=== PATIENT | female | born 1960 | race Caucasian/White ===

== ENCOUNTER 2016-11-17 09:37 | Emergency (ER) | payer OTHER ==
--- NOTE | 2016-11-17 11:36 | UC ---
Ear Complaint HPI - HPI Summary HPI Summary: 7 days ago pt had 2-3 days of vomiting and diarrhea with lots of chills. Was feeling better by 4 days ago, then yesterday developed nasal congestion, cough, R ear stuffiness, and difficulty hearing. Reports "panic attack because I couldn 't hear last night." Pt denies hx of breathing problems or COPD. No chills, fever, or trouble breathing in last couple days. - History of Current Complaint Chief Complaint: UCEar Stated Complaint: FEVER Time Seen by Provider: 11/17/16 11:19 Hx Obtained From: Patient ?: No Onset/Duration: Gradual Onset, Lasting Days Severity Initially: Mild Severity Currently: Mild Associated Signs/Symptoms: Positive: Hearing Loss, URI Symptoms - Allergies/Home Medications Allergies/Adverse Reactions: Allergies Allergy/AdvReac Type Severity Reaction Status Date / Time No Known Allergies Allergy Verified 12/21/15 10:37 PMH/Surg Hx/FS Hx/Imm Hx Endocrine History Of: Denies: Diabetes, Thyroid Disease Cardiovascular History Of: Reports: Cardiac Disorders - HEART ATTACK, Hypertension - TREATED Denies: Pacemaker/ICD Respiratory History Of: Reports: Asthma - NO INHALER NEEDED, Bronchitis - HX OF , NONE FOR 2 YEARS Denies: COPD GI/ History Of: Denies: Ulcer, Renal Disease Neurological History Of: Reports: Seizures - LAST AT AGE 14 Other History Of: Negative For: Anticoagulant Therapy - Surgical History Surgical History: Yes Surgery Procedure, Year, and Place: TONSILLECTOMY AGE 3,. 1981 [facility] 1986 [place], [place]. 11/13/14 LEFT ELBOW SURG[place], [facility] [place]. 07/2015 RIGHT ELBOW SURGERY AND CARPAL TUNNEL RELEASE, [facility] [place] - Family History Known Family History: Positive: Cardiac Disease - Brother (52) and father had an ID. - Social History Alcohol Use: None Substance Use Type: None Smoking Status (MU): Heavy Every Day Tobacco Smoker Type: Cigarettes Amount Used/How Often: LESS THAN 1 PPD Length of Time of Smoking/Using Tobacco: 44 YEARS Have You Smoked in the Last Year: Yes When Did the Patient Quit Smoking/Using Tobacco: 04/04/14 - Immunization History Most Recent Influenza Vaccination: n/a Most Recent Tetanus Shot: unk Most Recent Pneumonia Vaccination: n/a Review of Systems Constitutional: Chills - resolved Skin: Negative Eyes: Negative ENT: Ear Ache, Nasal Discharge Respiratory: Cough Cardiovascular: Negative Gastrointestinal: Vomiting - resolved, Diarrhea - resolved Genitourinary: Negative Motor: Negative Neurovascular: Negative Musculoskeletal: Negative Neurological: Negative Psychological: Negative All Other Systems Reviewed And Are Negative: Yes Physical Exam Triage Information Reviewed: Yes Appearance: Well-Appearing, No Pain Distress, Well-Nourished Vital Signs: Initial Vital Signs Temp 97.1 F 11/17/16 11:14 Pulse 71 11/17/16 11:14 Resp 18 11/17/16 11:14 Pulse Ox 97 11/17/16 11:14 Vital Signs Reviewed: Yes Eye Exam: Normal Eyes: Positive: Conjunctiva Clear ENT: Positive: Hearing grossly normal, Pharynx normal, Nasal congestion, Other: - R cerumen impaction. Negative: Nasal drainage, Tonsillar swelling - s/p tonsillectomy Dental Exam: Normal Neck exam: Normal Neck: Positive: Supple, Nontender, No Lymphadenopathy Respiratory Exam: Normal Respiratory: Positive: Chest non-tender, Lungs clear, Normal breath sounds, No respiratory distress, No accessory muscle use Cardiovascular Exam: Normal Cardiovascular: Positive: RRR, No Murmur Musculoskeletal Exam: Normal Neurological Exam: Normal Psychological Exam: Normal Skin Exam: Normal Ear Complaint Course/Dx - Differential Dx/Diagnosis Provider Diagnoses: R cerumen impaction. URI, likely viral. Acute gastroenteritis, resolved Discharge - Discharge Plan Condition: Stable Disposition: HOME Patient Education Materials: Cerumen Impaction (ED), Upper Respiratory Infection (ED) Referrals: Indra Blair MD [Primary Care Provider] - Additional Instructions: Call or return if you develop increasing fever, shortness of breath, chest pain , bloody sputum, or otherwise worsen. If you have not improved at all after several days, contact your primary care physician or return here.
[2016-11-17 11:46] VITALS: BP 138/70
== END 2016-11-17 11:59 | disposition home or self-care (01) ==
LOC: UCEAST 09:37
DX: J06.9 Acute upper respiratory infection, unspecified (principal); H61.21 Impacted cerumen, right ear; Z87.891 Personal history of nicotine dependence
CPT/HCPCS: 99212; G0463

== ENCOUNTER 2017-11-04 11:48 | Emergency (ER) | payer OTHER ==
[2017-11-04 12:23] VITALS: BP 139/71
== END 2017-11-04 13:51 | disposition left against medical advice (07) ==
LOC: UCEAST 11:48
DX: S89.90XA Unspecified injury of unspecified lower leg, initial encounter (principal); X58.XXXA Exposure to other specified factors, initial encounter; Y93.9 Activity, unspecified; Y92.9 Unspecified place or not applicable; Z53.21 Procedure and treatment not carried out due to patient leaving prior to being seen by health care provider

== ENCOUNTER 2018-02-21 00:29 | Observation (INO) | payer OTHER ==
--- OUTSIDE RECORDS SUMMARY | 2018-02-21 00:43 | XMS REPORT ---
:1960 External Reference #:[id number] Author Organization [facility] Address [address] [place] [address] Phone [phone] Care Team Providers Name Role Phone HCP given Primary Care Physician Unavailable Payers Type Date Identification Numbers Payment Provider Subscriber Health Maintenance Policy Number: [id number] Vidal[employer] ([employer] Jelly Gre[employer] Organization (HMO) MGD) PayID: [id number] [id number] [place] [id number] Problems Date Description Provider Status Onset: 11/29/2017 Coronary atherosclerosis Sharon Carranza PA Active Onset: 11/29/2017 Tobacco user Sharon Carranza PA Active Onset: 11/29/2017 Chronic pain syndrome Sharon Carranza PA Active Onset: 11/29/2017 Essential hypertension Sharon Carranza PA Active Family History Date Family Member(s) Problem(s) Comments Father Alcoholism Father due to HI () - age 42 Father HI Father Heart Problems Mother due to Appendicitis () Mother Obesity Children 1 First Brother due to HI () - age 54 First Sister due to Heart Problems () - age 26 First Sister due to Kidney Disease () - age 26 Second Sister due to Aneurysm Brain () - clot, age 59 Maternal Grandmother Cancer ?type Paternal Aunts Diabetes, Nos Social History Type Date Description Comments Education High School Completed Marital Status Cigarette Use 11/29/2017 Heavy tobacco smoker (more than 10 1 ppd cigarettes/day) ETOH Use Occassional Alcohol Recreational Drug Use Denies Drug Use Smoking Heavy tobacco smoker (more than 10 cigarettes/day) Daily Caffeine Consumes on average 2 cups of coffee per day Exercise Type/Frequency Walks daily Sun Exposure Uses sunscreen Seat Belt/Car Seat Seat Belt Use - Yes Guns in Home No Smoke Alarms Yes smoke alarm Currently Active 11/29/2017 Patient is currently not sexually active Allergies, Adverse Reactions, Alerts Date Description Reaction Status Severity Comments 11/29/2017 NKDA active Medications Medication Date Status Form Strength Qnty SIG Indications Ordering Provider Benzonatate 01/23/ Active Capsules 200mg 60caps 1 cap by R05 Ellen, 2017 mouth Ashwin, three M.D. times a day as needed cough Ventolin HFA 01/23/ Active Aerosol 108(90Base 18gm 2 puffs F17.210 Silcoff2017 ) mcg/Act q4-6 hours Ashwin, as needed M.D. Nicotine 01/23/ Active Patches 21mg/24HR 42unit 1 patch F17.210 Silcoff 2017 24HR s topically Ashwin, daily M.D. Senokot 01/22/ Active Tablets 8.6mg as Unknown 2017 directed, as needed Knee 11/29/ Active Misc 1units use as M25.561 Silcoff, Brace/Flexible 2018 directed Ashwin, Stays/Medium M.D. Aspirin Adult 11/28/ Active Tablets DR 81mg 1 by mouth Unknown Low Dose 2017 every day Nitroglycerin 11/28/ Active Tablets 0.4mg as needed, Unknown 2017 Sub as directed Oxycodone HCL 11/28/ Active Tablets 10mg 81tabs Take 1 Unknown 2018 Tablet By Mouth Every 8 Hours as Directed -- Maximum Daily Dose Lisinopril 11/02/ Active Tablets 5mg 30tabs 1 tablet Mauser, 2017 by mouth Sanket every day Metoprolol 11/02/ Active Tablets ER 25mg 30tabs take 1 Mauser, Succinate ER 2018 24HR tablet by erick Coles MD every day Clopidogrel 11/02/ Active Tablets 75mg 30tabs take 1 Mauser, Bisulfate 2018 tablet by erick Coles MD every day Amlodipine 11/02/ Active Tablets 10mg 30tabs take 1 Mauser, Besylate 2018 tablet by erick Coles MD every day Atorvastatin 10/31/ Active Tablets 80mg 15tabs take 1/2 Mauser, Calcium 2018 tablet by erick Coles MD every day Vital Signs Date Vital Result Comment 01/23/2018 BP Systolic 126 mmHg BP Diastolic 70 mmHg Heart Rate 82 /min O2 % BldC Oximetry 97 % Body Temperature 97.6 F Weight 191.00 lb 11/29/2017 BP Systolic 138 mmHg BP Diastolic 76 mmHg Height 64 inches 5'4" Weight 190.00 lb BMI (Body Mass Index) 32.6 kg/m2 Results Description No Information Procedures Date CPT Code Description Status 01/23/2018 71723 Spirometry Completed Encounters Type Date Location Provider CPT E/M Dx Office Visit 01/23/2018 2:30p [place] [address] R05 F17.210 M25.561 M65.331 I25.10 Office Visit 11/29/2017 3:20p [place] [address] M25.561 I25.10 I10 G89.4 F17.210 Z79.891 Plan of Care 01/23/2018 - Sharon Carranza PAR05 CoughNew Medication:Benzonatate 200 mgComments :Rx for tessalon prn cough. Pt needs to quit smoking.F17.210 Nicotine dependence , cigarettes, uncomplicatedNew Medication:Ventolin HFA 108(90 Base) mcg/ ActNicotine 21 mg/24HRComments:Smoking cessation counseling <10 minutes done today. Spirometry showed mild restriction--discussed.M25.561 Pain in right kneeNew Xrays:MRI Knee Right W/O ContrastComments:Continue R knee brace. Will MRI (Xrays done prior were normal). Consider ortho referral based on MRIresults.M65.331 Trigger finger, right middle fingerComments:Recommended pt start using her hand/wrist braces at night and monitor sx. Consider referring back toortho if not improving.I25.10 Athscl heart disease of [place] coronary artery w/o ang pctrsComments:Sees cardiology, has upcoming stress test scheduled.
--- OUTSIDE RECORDS SUMMARY | 2018-02-21 00:43 | XMS REPORT ---
:1960 External Reference #:[id number] Author Organization [place] [employer] [facility] Address [address] [address] Phone [phone] Care Team Providers Name Role Phone Patient's Choice Care Team Information Veterinary Virus Serum Inspector Unavailable Indra Blair MD Primary Care Physician Unavailable Payers Type Date Identification Numbers Payment Provider Subscriber Commercial Policy Number: [id number] [employer] Zach Domingo PayID: [id number] [address] [address] [place] [address] Workers Compensation Effective: Policy Number: State Insurance Zach Prideol 2016 [id number] Fund Onset: 2013 Group Number: [id number] [address] [id number] Group Name: [id number] [place] [address] [id number] Expires: Policy Number: State Insurance Candneto Chayo 2016 [id number] Fund Onset: 2013 Group Number: [id number] [address] [id number] Group Name: [id number] [place] [address] [place]: [email or web address] Workers [place] Expires: 2013 Policy Number: Varun-ALL Elizabeth Zach Domingo [id number] PayID: [id number] [address] [place] [address] Problems Date Description Provider Status Onset: 06/09/2014 Lateral epicondylitis Jada Chaney M.D. Active Onset: 06/01/2015 Disorder of bursa of shoulder Jesus Martinez M.D. Active region Onset: 04/07/2016 Carpal tunnel syndrome of left Mariela Montelongo MD Active wrist Onset: 12/29/2016 Lesion of ulnar nerve Mariela Montelongo MD Active Onset: 01/05/2017 Carpal tunnel syndrome of right Mariela Montelongo MD Active wrist Family History Date Family Member(s) Problem(s) Comments General Heart Disease, Cancer, Diabetes General KS Father due to KS () Mother due to appendicitis () Siblings 7 1 brother of KS sister also passed from enlarged heart Social History Type Date Description Comments Lives With Alone Occupation Disabled out on workmans comp ETOH Use Occasionally consumes alcohol Recreational Drug Use Denies Drug Use Smoking Light tobacco smoker (10 or fewer cigarettes/day) Daily Caffeine Consumes on average 2 cups of regular coffee per day Exercise Type/Frequency Does not exercise Allergies, Adverse Reactions, Alerts Date Description Reaction Status Severity Comments 10/24/2013 NKDA active Medications Medication Date Status Form Strength Qnty SIG Indications Ordering Provider Nitro-Dur 02/04/ Active Patches 0.1mg/HR 30uni 1 patch Sanket 2017 24HR ts every day Bridger Rapp, on in the M.D. morning, off at night Metoprolol 01/17/ Active Tablets ER 25mg 90tab 1 by Sanket Succinate ER 2016 24HR s mouth FHeladio Mausechau, every day M.D. Amlodipine / Active Tablets 10mg 90tab 1 by Sanket Besylate s mouth FHeladio Mausechau, every day M.D. Oxycodone HCL / Active Tablets 10mg 1 by Unknown 0000 mouth every 8 hours as directed Aspirin / Active Tablets DR 81mg 1 by Unknown 0000 mouth every day Clopidogrel / Active Tablets 75mg 90tab 1 by Sanket Bisulfate 0000 s mouth FHeladio Mausechau, every day M.D. Lisinopril / Active Tablets 5mg 90tab 1 by Sanket 0000 s mouth FHeladio Mausechau, every day M.D. Atorvastatin / Active Tablets 80mg 45tab 1/2 by Sanket Calcium 0000 s mouth FHeladio Mausechau, every day M.D. Nitrostat / Active Tablets 0.4mg one sl Unknown 0000 Sub q5min up to 3 doses as needed Senokot / Active Tablets 8.6mg once a Unknown 0000 day as needed Benzonatate / Active Capsules 200mg one by Unknown 0000 mouth three times daily as needed for cough Ventolin HFA / Active Aerosol 108(90Bas 2 puffs Unknown 0000 e) by mouth mcg/Act four times a day as needed Amoxicillin/Clavu 09/03/ Hx Tablets 875-125mg 1 by Unknown lanate Potassium 2017 - mouth 11/08/ twice a 2018 day Ipratropium 09/03/ Hx Solution 0.06% 2 sprays Unknown [place] 2017 - in each 01/06/ nostril 3 2018 times daily as needed (pt has not started) [place] 01/25/ Hx Tablets 5-325mg 45tab 1-2 by Jacob Sierra 2015 - s mouth bid MD Jayda 04/06/ as 2016 needed pain [place] 12/30/ Hx Tablets 5-325mg 45tab 1-2 by Jacob Bañuelos - s mouth bid MD Jayda 04/06/ as needed 2015 pain [place] 10/30/ Hx Tablets 5-325mg 16tab one to Sanjana 2015 Che[place] s two tabs Mike, 12/10/ by mouth M.D. 2015 bid [place] 10/08/ Hx Tablets 5-325mg 60tab one to Jl 2014 Cheko s two tabs Kirit, 10/15/ by mouth M.DHeladio 2014 twice a day as needed for pain Hydrocodone-Aceta 06/01/ Hx Tablets 5-325mg 45tab 1-2 tabs M75.50 Zaneb minophen 2014 - s PO Q6 MD Jayda 01/24/ hours prn 2016 pain Medrol 02/03/ Hx Tablets 4mg 1tabs medrol Jada 2014 [place] dosepajimmie Vargas 04/20/ as Yolanda fraser 2014 directed [place] 12/30/ Hx Tablets 5-325mg 60tab 1-2 by Jose 2014 - s mouth Hilario, 06/12/ every 8 M.DHeladio 2015 hour as needed pain No Active 01/20/ Hx Unknown Medications 2013 - 2013 [place] 01/20/ Hx Tablets 5-325mg 60tab 1 by Jada 2013 - s erick Vargas 12/29/ every 8 Yolanda fraser 2015 hour as needed pain [place] 09/17/ Hx Tablets 5-325mg 60tab take 1-2 Jesus2012 - tab by Juan, 01/12/ mouth M.DHeladio 2013 twice a day as needed pain Naprosyn 09/17/ Hx Tablets 500mg 60tab twice 2012 - daily Juan, 01/12/ with food M.DHeladio 2013 prn Hydrocodone-Aceta / Hx Unknown minophen 0000 - 2013 Lisinopril / Hx Tablets 20mg 1 by Unknown 0000 - mouth 04/20/ every day 2014 [place] /00/ Hx Unknown 0000 - 2014 Cyclobenzaprine / Hx Tablets 10mg one by Unknown HCL 0000 - mouth 07/21/ three 2015 times a day as needed spasm [place] / Hx Tablets 5-325mg 1-2 by M77.11 Unknown 0000 mouth twice a day as needed pain Metoprolol / Hx Tablets ER 100mg 30tab 1/2 tab Sanket Succinate ER 0000 - 24HR s by mouth F. Mausechau, 01/17/ every day M.Jonah 2016 Medications Administered in Office Medication Date Status Form Strength Qnty SIG Indications Ordering Provider Triamcinolone 03/01/ Administered Injection Merlyn (Kenalog) 2016 BLU [place] Depomedrol 80MG 04/20/ Administered Injection Jesus 2014 Yolanda Martinez Celestone 3 mg 03/25/ Administered Injection Jada and 3mg 2013 Sam fraser M.D. Celestone 3 mg 01/13/ Administered Injection Jada and 3mg 2013 Sam fraser M.D. Celestone 3 mg 08/02/ Administered Injection Jada and 3mg 2012 Sam fraser M.D. Celestone 3 mg 08/02/ Administered Injection Jada and 3mg 2012 Sam fraser M.D. Celestone 3 mg 05/24/ Administered Injection Jada and 3mg 2012 Sam fraser M.D. Celestone 3 mg 05/24/ Administered Injection Jada and 3mg 2012 Sam fraser M.D. Vital Signs Date Vital Result Comment 02/06/2018 Height 64 inches 5'4" Weight 192.00 lb Heart Rate 84 /min BP Systolic Sitting 124 mmHg BP Diastolic Sitting 84 mmHg Respiratory Rate 16 /min BMI (Body Mass Index) 33.0 kg/m2 Ejection Fraction 55-60% as of 06/2016 echo 09/04/2017 Height 64 inches 5'4" Weight 194.75 lb with shoes Heart Rate 82 /min BP Systolic Sitting 128 mmHg LA reg cuff BP Diastolic Sitting 78 mmHg LA reg cuff BMI (Body Mass Index) 33.4 kg/m2 Ejection Fraction 55-60% echo 03/08/17 08/15/2017 Height 64 inches 5'4" Weight 192.38 lb with shoes Heart Rate 96 /min BP Systolic Sitting 130 mmHg LA reg cuff BP Diastolic Sitting 84 mmHg LA reg cuff BP Systolic Standing 118 mmHg ra repeat sitting. BP Diastolic Standing 61 mmHg ra repeat sitting. BMI (Body Mass Index) 33.0 kg/m2 Ejection Fraction 55% - 60% stress test 03/08/17 01/23/2017 Height 64 inches 5'4" Weight 187.00 lb no shoes Heart Rate 68 /min BP Systolic Sitting 122 mmHg Rue lrg cuff BP Diastolic Sitting 72 mmHg Rue lrg cuff BP Systolic Standing 122 mmHg Rue lrg cuff BP Diastolic Standing 70 mmHg Rue lrg cuff Respiratory Rate 17 /min BMI (Body Mass Index) 32.1 kg/m2 Ejection Fraction 55-60% 07/10/2016-echo 01/17/2017 Height 64 inches 5'4" Weight 188.25 lb with shoes Heart Rate 90 /min BP Systolic Sitting 120 mmHg LA reg cuff BP Diastolic Sitting 66 mmHg LA reg cuff BMI (Body Mass Index) 32.3 kg/m2 Ejection Fraction 55% - 60% echo 07/10/16 01/05/2017 Height 64 inches 5'4" Weight 182.00 lb Heart Rate 73 /min BP Systolic 108 mmHg BP Diastolic 71 mmHg Respiratory Rate 16 /min Body Temperature 97.6 F Pain Level 5 BMI (Body Mass Index) 31.2 kg/m2 12/29/2016 Height 64 inches 5'4" Weight 182.00 lb Heart Rate 70 /min BP Systolic 122 mmHg BP Diastolic 77 mmHg Respiratory Rate 16 /min Body Temperature 98.6 F BMI (Body Mass Index) 31.2 kg/m2 11/04/2016 Height 64 inches 5'4" Weight 190.00 lb Pain Level 8 without medication BMI (Body Mass Index) 32.6 kg/m2 07/26/2016 Height 64 inches 5'4" Weight 189.00 lb with shoes Heart Rate 80 /min BP Systolic Sitting 132 mmHg LA, large BP Diastolic Sitting 80 mmHg LA, large BMI (Body Mass Index) 32.4 kg/m2 Ejection Fraction 55-60% echo 07/10/16 07/18/2016 Height 64 inches 5'4" Weight 190.00 lb Heart Rate 74 /min 82 BP Systolic Sitting 110 mmHg left arm, reg cuff BP Diastolic Sitting 82 mmHg left arm, reg cuff BP Systolic Standing 106 mmHg left arm, reg cuff BP Diastolic Standing 80 mmHg left arm, reg cuff Respiratory Rate 20 /min BMI (Body Mass Index) 32.6 kg/m2 Ejection Fraction 55-60% 07/10/16 06/07/2016 Height 64 inches 5'4" Weight 196.00 lb Pain Level 2 BMI (Body Mass Index) 33.6 kg/m2 04/07/2016 Height 64 inches 5'4" Weight 200.00 lb Heart Rate 64 /min Respiratory Rate 18 /min Pain Level 5 on left only BMI (Body Mass Index) 34.3 kg/m2 03/01/2016 Height 64 inches 5'4" Weight 200.00 lb Pain Level 9 BMI (Body Mass Index) 34.3 kg/m2 02/25/2016 Height 64 inches 5'4" Weight 200.00 lb Pain Level 6 BMI (Body Mass Index) 34.3 kg/m2 01/26/2016 Height 64 inches 5'4" Weight 203.00 lb Respiratory Rate 16 /min Pain Level 8 BMI (Body Mass Index) 34.8 kg/m2 01/14/2016 Height 64 inches 5'4" Weight 203.00 lb Pain Level 6 BMI (Body Mass Index) 34.8 kg/m2 12/29/2015 Height 64 inches 5'4" Weight 203.00 lb Pain Level 5 BMI (Body Mass Index) 34.8 kg/m2 12/11/2015 Height 64 inches 5'4" Weight 203.00 lb Heart Rate 60 /min BP Systolic Sitting 138 mmHg BP Diastolic Sitting 80 mmHg Respiratory Rate 16 /min Pain Level 2 BMI (Body Mass Index) 34.8 kg/m2 11/03/2015 Height 64 inches 5'4" Weight 203.00 lb Pain Level 0 BMI (Body Mass Index) 34.8 kg/m2 09/22/2015 Height 64 inches 5'4" Weight 203.00 lb Pain Level 6 BMI (Body Mass Index) 34.8 kg/m2 08/11/2015 Height 64 inches 5'4" Weight 203.00 lb Pain Level 7 BMI (Body Mass Index) 34.8 kg/m2 07/22/2015 Height 64 inches 5'4" Weight 203.00 lb Heart Rate 91 /min BP Systolic 155 mmHg BP Diastolic 102 mmHg BMI (Body Mass Index) 34.8 kg/m2 07/01/2015 Height 64 inches 5'4" Weight 203.00 lb BMI (Body Mass Index) 34.8 kg/m2 06/01/2015 Height 64 inches 5'4" Weight 203.00 lb Pain Level 5 BMI (Body Mass Index) 34.8 kg/m2 04/20/2015 Height 64 inches 5'4" Weight 203.00 lb Pain Level 8 BMI (Body Mass Index) 34.8 kg/m2 03/13/2015 Height 64 inches 5'4" Weight 203.00 lb Pain Level 6 BMI (Body Mass Index) 34.8 kg/m2 02/03/2015 Height 64 inches 5'4" Weight 203.00 lb Pain Level 4 BMI (Body Mass Index) 34.8 kg/m2 12/30/2014 Height 64 inches 5'4" Weight 200.00 lb Pain Level 5 BMI (Body Mass Index) 34.3 kg/m2 12/02/2014 Height 64 inches 5'4" Weight 200.00 lb Pain Level 4 BMI (Body Mass Index) 34.3 kg/m2 11/18/2014 Height 64 inches 5'4" Weight 200.00 lb Pain Level 4 BMI (Body Mass Index) 34.3 kg/m2 11/06/2014 Height 64 inches 5'4" Weight 200.00 lb Heart Rate 94 /min BP Systolic 124 mmHg LA reg BP Diastolic 86 mmHg LA reg BMI (Body Mass Index) 34.3 kg/m2 07/29/2014 Height 64 inches 5'4" Weight 165.00 lb Heart Rate 73 /min BP Systolic 149 mmHg BP Diastolic 91 mmHg BMI (Body Mass Index) 28.3 kg/m2 06/23/2014 Height 64 inches 5'4" Weight 165.00 lb Heart Rate 75 /min BP Systolic 199 mmHg BP Diastolic 101 mmHg Body Temperature 98.1 F BMI (Body Mass Index) 28.3 kg/m2 05/14/2014 Height 64 inches 5'4" Weight 165.00 lb Heart Rate 69 /min BMI (Body Mass Index) 28.3 kg/m2 2014 Height 64 inches 5'4" Weight 165.00 lb Body Temperature 98.1 F BMI (Body Mass Index) 28.3 kg/m2 01/13/2014 Height 64 inches 5'4" Weight 165.00 lb Heart Rate 68 /min BP Systolic 190 mmHg BP Diastolic 93 mmHg BMI (Body Mass Index) 28.3 kg/m2 10/24/2013 Height 64 inches 5'4" Weight 165.00 lb Heart Rate 90 /min BP Systolic 163 mmHg BP Diastolic 106 mmHg BMI (Body Mass Index) 28.3 kg/m2 Results Test Date Test Result H/L Range Note Laboratory test 08/30/2017 B-Type Natriuretic 61 pg/mL 1 finding Peptide BNP CBC Auto Diff 08/30/2017 White Blood Count 15.0 10^3/uL High 3.5-10.8 Red Blood Count 5.40 10^6/uL 4.0-5.4 Hemoglobin 16.7 g/dL High 12.0-16.0 Hematocrit 48 % High 35-47 Mean Corpuscular Volume 90 fL 80-97 Mean Corpuscular Hemoglobin 31 pg 27-31 Mean Corpuscular HGB Conc 35 g/dL 31-36 Red Cell Distribution Width 14 % 10.5-15 Platelet Count 140 10^3/uL Low 150-450 Mean Platelet Volume 10 um3 7.4-10.4 Abs Neutrophils 10.3 10^3/uL High 1.5-7.7 Abs Lymphocytes 3.6 10^3/uL 1.0-4.8 Abs Monocytes 0.8 10^3/uL 0-0.8 Abs Eosinophils 0.1 10^3/uL 0-0.6 Abs Basophils 0.1 10^3/uL 0-0.2 Abs Nucleated RBC 0.01 10^3/uL Granulocyte % 68.8 % 38-83 Lymphocyte % 24.0 % Low 25-47 Monocyte % 5.5 % 1-9 Eosinophil % 0.8 % 0-6 Basophil % 0.9 % 0-2 Nucleated Red Blood Cells % 0.1 Lipid Panel - [facility] 08/30/2017 Creatine Kinase(CK) 30 U/L 10-223 Comp Metabolic Panel 08/30/2017 Sodium 132 mmol/L Low 133-145 Potassium 4.2 mmol/L 3.5-5.0 Chloride 105 mmol/L 101-111 Co2 Carbon Dioxide 21 mmol/L Low 22-32 Anion Gap 6 mmol/L 2-11 Glucose 93 mg/dL 70-100 Blood Urea Nitrogen 10 mg/dL 6-24 Creatinine 0.68 mg/dL 0.51-0.95 BUN/Creatinine Ratio 14.7 8-20 Calcium 9.5 mg/dL 8.6-10.3 Total Protein 7.0 g/dL 6.4-8.9 Albumin 4.1 g/dL 3.2-5.2 Globulin 2.9 g/dL 2-4 Albumin/Globulin Ratio 1.4 1-3 Total Bilirubin 0.90 mg/dL 0.2-1.0 Alkaline Phosphatase 154 U/L High 34-104 Alt 24 U/L 7-52 Ast 23 U/L 13-39 Egfr Non- 88.9 >60 Egfr 114.3 >60 2 Lipid Profile (Trig/Chol/HDL) 08/30/2017 Triglycerides 121 mg/dL 3 Cholesterol 145 mg/dL 4 HDL Cholesterol 46.5 mg/dL 5 LDL Cholesterol 74 mg/dL 6 CBC Auto Diff 01/19/2017 White Blood Count 12.6 10^3/uL High 3.5-10.8 Red Blood Count 5.27 10^6/uL 4.0-5.4 Hemoglobin 16.2 g/dL High 12.0-16.0 Hematocrit 48 % High 35-47 Mean Corpuscular Volume 92 fL 80-97 Mean Corpuscular Hemoglobin 31 pg 27-31 Mean Corpuscular HGB Conc 34 g/dL 31-36 Red Cell Distribution Width 14 % 10.5-15 Platelet Count 130 10^3/uL Low 150-450 Mean Platelet Volume 11 um3 High 7.4-10.4 Abs Neutrophils 7.4 10^3/uL 1.5-7.7 Abs Lymphocytes 4.1 10^3/uL 1.0-4.8 Abs Monocytes 0.8 10^3/uL 0-0.8 Abs Eosinophils 0.1 10^3/uL 0-0.6 Abs Basophils 0.1 10^3/uL 0-0.2 Abs Nucleated RBC 0 10^3/uL Granulocyte % 58.9 % 38-83 Lymphocyte % 32.7 % 25-47 Monocyte % 6.6 % 1-9 Eosinophil % 1.0 % 0-6 Basophil % 0.8 % 0-2 Nucleated Red Blood Cells % 0 Laboratory test finding 01/19/2017 B-Type Natriuretic Peptide 49 pg/mL 7 BNP Comp Metabolic Panel 01/19/2017 Sodium 134 mmol/L 133-145 Potassium 4.2 mmol/L 3.5-5.0 Chloride 104 mmol/L 101-111 Co2 Carbon Dioxide 23 mmol/L 22-32 Anion Gap 7 mmol/L 2-11 Glucose 82 mg/dL 70-100 Blood Urea Nitrogen 9 mg/dL 6-24 Creatinine 0.62 mg/dL 0.51-0.95 BUN/Creatinine Ratio 14.5 8-20 Calcium 9.2 mg/dL 8.6-10.3 Total Protein 6.8 g/dL 6.4-8.9 Albumin 3.8 g/dL 3.2-5.2 Globulin 3.0 g/dL 2-4 Albumin/Globulin Ratio 1.3 1-3 Total Bilirubin 0.80 mg/dL 0.2-1.0 Alkaline Phosphatase 164 U/L High 34-104 Alt 23 U/L 7-52 Ast 23 U/L 13-39 Egfr Non- 99.2 >60 Egfr 127.6 >60 8 Lipid Profile (Trig/Chol/HDL) 01/19/2017 Triglycerides 93 mg/dL 9 Cholesterol 137 mg/dL 10 HDL Cholesterol 44.6 mg/dL 11 LDL Cholesterol 74 mg/dL 12 Laboratory test 01/19/2017 Creatine Kinase(CK) 27 U/L 10-223 finding Laboratory test 07/09/2016 Troponin-I (TnI) 0.53 ng/mL High <0.03 13 finding Laboratory test 07/30/2015 Surgical Pathology SEE RESULT BELOW 14 finding Creatinine 07/17/2015 Creatinine 0.73 mg/dL 0.51-0.95 Egfr Non- 82.5 >60 Egfr 106.1 >60 15 Surgical Pathology 11/13/2014 S RUN DATE: 11/17/ <SEE NOTE> 16 Laboratory test finding 10/02/2014 Renin 59 ng/mL/h 17 1 >100 to <200 pg/mL: likely compensated congestive heart failure (CHF) 200 to 400 pg/mL: likely moderate CHF >400 pg/mL: likely moderate to severe CHF 2 Because ethnic data is not always readily available, this report includes an eGFR for both -Americans and non- Americans. The National Kidney Disease Education Program (NKDEP) does not endorse the use of the MDRD equation for patients that are not between the ages of 18 and 70, are , have extremes of body size, muscle mass, or nutritional status, or are non- or non-. According to the National Kidney Foundation, irrespective of diagnosis, the stage of the disease is based on the level of kidney function: Stage Description GFR(mL/min/1.73 m(2)) 1 Kidney damage with normal or decreased GFR 90 2 Kidney damage with mild decrease in GFR 60-89 3 Moderate decrease in GFR 30-59 4 Severe decrease in GFR 15-29 5 Kidney failure <15 (or dialysis) 3 Desirable: <150 Borderline High: 150-199 High: 200-499 Very High: >500 4 Desirable: <200 Borderline High: 200-239 High: >239 5 Low: <40 Desirable: 40-60 High: >60 6 Desirable: <100 Near Optimal: 100-129 Borderline High: 130-159 High: 160-189 Very High: >189 7 >100 to <200 pg/mL: likely compensated congestive heart failure (CHF) 200 to 400 pg/mL: likely moderate CHF >400 pg/mL: likely moderate to severe CHF 8 Because ethnic data is not always readily available, this report includes an eGFR for both -Americans and non- Americans. The National Kidney Disease Education Program (NKDEP) does not endorse the use of the MDRD equation for patients that are not between the ages of 18 and 70, are , have extremes of body size, muscle mass, or nutritional status, or are non- or non-. According to the National Kidney Foundation, irrespective of diagnosis, the stage of the disease is based on the level of kidney function: Stage Description GFR(mL/min/1.73 m(2)) 1 Kidney damage with normal or decreased GFR 90 2 Kidney damage with mild decrease in GFR 60-89 3 Moderate decrease in GFR 30-59 4 Severe decrease in GFR 15-29 5 Kidney failure <15 (or dialysis) 9 Desirable <150 Borderline high 150-199 High 200-499 Very High >500 10 Desirable <200 Borderline high 200-239 High >239 11 Low <40 Desirable: 40-60 High: >60 12 Desirable: <100 mg/dL Near Optimal: 100-129 mg/dL Borderline High: 130-159 mg/dL High: 160-189 mg/dL Very High: >189 mg/dL 13 Result TnIDx:0.53 Called to [employer] at: 11:16:10 by:[id number] Read back by: [id number] Reference Range and Interpretation: TnI (ng/mL) Interpretation Less Than 0.03 ng/mL Not supportive of diagnosis of [place] 0.03 - 0.50 ng/mL Indeterminate: suggest serial studies if clinically indicated. Greater than 0.5 ng/mL Consistent with diagnosis of [place] 14 SEE RESULT BELOW Name: ZACH DOMINGO : [address]: Jada Chaney Acct: [id number] Unit: [id number] AGE: 55 Location: [facility] Re07/30/15 SEX: F Status: REG [facility] SPEC: [id number] EMILE: 07/30/15-[address] [facility] [address]: Jada Chaney MD REQ: [id number] RECD: 07/30/15 STATUS: SOUT _ ORDERED: LEVEL III FINAL DIAGNOSIS Elbow, right lateral, excision: -- Benign fibroconnective and synovial tissue fragments with reactive change. PRE-OPERATIVE DIAGNOSIS Lesion of ulnar nerve right upper limb lateral elbow. GROSS DESCRIPTION The specimen is received in formalin labeled, Right Lateral Elbow Tissue, and consists of a 1.9 x 1.8 x 0.2 cm aggregate of akers-pink irregular rubbery soft tissue fragments, which is submitted entirely in one cassette. Signed (signature on file) Trisha Fair MD 1243 END OF REPORT * ML=Testing performed at Main Lab DEPARTMENT OF PATHOLOGY, [address] [place] [address] Ritesh Sullivan M.D. Director [facility] # [id number] 15 Because ethnic data is not always readily available, this report includes an eGFR for both -Americans and non- Americans. The National Kidney Disease Education Program (NKDEP) does not endorse the use of the MDRD equation for patients that are not between the ages of 18 and 70, are , have extremes of body size, muscle mass, or nutritional status, or are non- or non-. According to the National Kidney Foundation, irrespective of diagnosis, the stage of the disease is based on the level of kidney function: Stage Description GFR(mL/min/1.73 m(2)) 1 Kidney damage with normal or decreased GFR 90 2 Kidney damage with mild decrease in GFR 60-89 3 Moderate decrease in GFR 30-59 4 Severe decrease in GFR 15-29 5 Kidney failure <15 (or dialysis) 16 RUN DATE: 11/17/14 [facility] LAB LIVE PAGE 1 RUN TIME: [address] [place], [place] [address] Specimen Inquiry Name: CHAYOCATRACHITANeto Armendariz : [address]: Jada Chaney Acct: [id number] Unit: [id number] AGE: 54 Location: [facility] Re11/13/14 SEX: F Status: REG [facility] SPEC: [id number] EMILE: 11/13/14- SUBM DR: Jada Chaney MD REQ: [id number] RECD: 11/14/141119 STATUS: SOUT _ ORDERED: LEVEL III FINAL DIAGNOSIS Soft tissue, left elbow, resection -- Synovial and ligament/tendon tissue with architectural disorder, myxoid change with fibrosis and neovascularization. PRE-OPERATIVE DIAGNOSIS Epicondylitis lateral and cubital tunnel syndrome GROSS DESCRIPTION The specimen is received in formalin labeled, Lateral Epicondylitis, Left Elbow, and consists of a 1.8 x 1.5 x 0.5 cm aggregate of akers white rubbery tendinous soft tissue fragments, which is submitted entirely in one cassette. Signed (signature on file) Ritesh Sullivan MD 1237 END OF REPORT * ML=Testing performed at Main Lab DEPARTMENT OF PATHOLOGY, [address] [place] [address] Ritesh Sullivan M.D. Director [facility] # [id number] REFERENCE VALUE (Peripheral vein specimen) Na-deplete, upright: Mean: 5.9 Range: 2.9-10.8 Na-replete, upright: Mean: 1.0 Range: <=0.6-3.0 Test Performed by: [place] [address] Ese Teacher: Easton Corona M.D. Procedures Date CPT Code Description Status 08/15/2017 96271 EKG Tracing & Interpretation Completed 03/08/2017 66836 ECHO Stress Test Incl Perf Contiuous ekg Monitoring Completed W/Phys Superv 01/17/2017 64128 EKG Tracing & Interpretation Completed 07/26/2016 46028 EKG Tracing & Interpretation Completed 07/11/2016 17650 Intravascular Blood Flow Velocity Completed 07/11/2016 47016 Left Heart Cath. Incl S/I Coronaries, Angio S/I V Gram Completed If Done 07/10/2016 76487 ECHO Transthorasic Realtime 2D W Doppler & Color Completed Flow Hosp 07/10/2016 18033 EKG, Interpretation Only Completed 07/09/2016 52199 EKG, Interpretation Only Completed 03/01/201686815 Inject/Drain Joint/Bursa Major Completed 03/01/2016 Inject/Drain Joint/Bursa Major Completed 12/21/2015 91278 Carpal Tunnel Release Completed 12/21/2015 05545 Carpal Tunnel Release Completed 12/21/2015 93594 Carpal Tunnel Release Completed 07/30/2015 25407 Tenotomy Elbow Debridement W/Tendon Repair Or Completed Reattachement 07/30/2015 50907 Tenotomy Elbow Debridement W/Tendon Repair Or Completed Reattachement 07/30/2015 08356 Carpal Tunnel Release Completed 04/20/2015 08382 Inject/Drain Joint/Bursa Major Completed 11/13/2014 84903 Neuroplasty &/Or Transposition; Ulnar Nerve At Completed Elbow 11/13/2014 62573 Tenotomy Elbow Debridement W/Tendon Repair Or Completed Reattachement 11/13/2014 27156 Tenotomy Elbow Debridement W/Tendon Repair Or Completed Reattachement 11/07/2014 33562 ECHO Transthoracic, Real-Time 2D With Doppler And Color Completed Flow 11/06/2014 78029 ECHO Stress Test Incl Perf Contiuous ekg Monitoring Completed W/Phys Superv 11/06/2014 91186 EKG Tracing & Interpretation Completed 03/25/201429778 Inject/Drain Joint/Bursa Intermediate Completed 03/25/201444491 Inject/Drain Joint/Bursa Intermediate Completed 03/25/201467938 Injection Single Tendon Origin/Insertion Completed 01/13/201454726 Injection Single Tendon Origin/Insertion Completed 08/02/201301929 Inject Tendon Sheath Or Ligament Aponeurosis Eg Plantar Completed Fascia 05/24/201343890 Injection Single Tendon Origin/Insertion Completed 05/24/201384067 Inject Tendon Sheath Or Ligament Aponeurosis Eg Plantar Completed Fascia Encounters Type Date Location Provider CPT E/M Dx Office Visit 02/06/2018 9:00a [facility] Arianna Saxena, N.P. [address] [address] [facility] R06.00 I25.2 I25.10 Office Visit 09/04/2017 10:00a [facility] JOSE Ramirez 37476 I10 I25.10 R06.00 Office Visit 08/15/2017 9:00a [facility] Sanket Rapp, 52621 R06.00 M.DHeladio I10 I25.2 I25.118 R07.9 Office Visit 01/23/2017 1:00p [facility] JOSE Ramirez 79644 I10 I25.10 R06.00 Z72.0 Office Visit 01/17/2017 1:00p [facility] Sanket Rapp M.D. 79959 I21.4 I10 I25.10 R06.00 Office Visit 01/05/2017 10:15a [facility] [place] [address] G56.02 C.M.A. G56.21 M77.11 M77.12 G56.01 G56.22 Office Visit 12/29/2016 9:15a [facility] [place] [address] G56.02 C.M.A. G56.21 M77.11 M77.12 Office Visit 11/04/2016 9:15a [facility] [place] [address] G56.02 C.M.A. Z47.89 Office Visit 07/26/2016 1:20p [facility] Sanket Rapp M.D. 32912 R07.9 I21.4 I10 I25.10 Z72.0 R94.31 I70.213 K59.00 Office Visit 07/18/2016 3:00p [facility] Benito Puentes, 03995 R07.9 At [facility], [facility], [facility] Office Visit 07/12/2016 2:04p [facility] Marquis Taylor M.D., 69473 I21.4 At [facility], [facility] Office Visit 07/12/2016 8:53a [facility], Jl Peraza, 89379 I21.4 Hospitalists MMarycarmen I10 Office Visit 07/11/2016 2:06p [facility] Marquis Taylor M.D., 70032 I21.4 At [facility], [facility] Office Visit 07/11/2016 8:52a [facility], Jl Peraza, 43061 I21.4 Hospitalists MMarycarmen I10 Office Visit 07/10/2016 2:20p [facility] Kole Flynn, 01559 I21.4 DO [facility] Office Visit 07/10/2016 8:52a [facility],pc Ce Corbin, 87248 I21.4 Hospitalists M.DHeladio I10 Z72.0 Office Visit 07/09/2016 8:51a [facility], Shy Heath, ERICA 92695 I21.4 Hospitalists I10 Z72.0 Office Visit 07/09/2016 4:30p [facility] [place] [address] R07.9 [facility]ly [facility] I21.4 Office Visit 06/07/2016 1:00p [facility] [place] [address] G56.02 C.M.A. M75.52 Z47.89 Office Visit 04/07/2016 10:30a [facility] [place] [address] G56.02 C.M.A. G56.02 M75.52 M75.52 Z47.89 Z47.89 Office Visit 03/01/2016 9:20a [facility] Merlyn Morataya, 84076 M75.52 C.M.A. RPA-C M75.52 S46.012D S46.012D Office Visit 11/03/2015 10:45a [facility] [place] [address] M77.11 C.M.A. M77.12 G56.01 G56.02 R22.1 G56.21 G56.22 M77.11 Office Visit 07/22/2015 9:30a [facility] Jada Chaney, 51330 M77.11 Of Estrellita Guerrero G56.01 Office Visit 07/01/2015 9:15a [facility] Jada Chaney, 74054 G56.21 Of Aakash.Misbah Guerrero M77.11 Office Visit 06/01/2015 9:30a [facility] Martinez M.D. 58938 726.10 C.M.AHeladio 840.4 726.10 Office Visit 04/20/2015 8:30a [facility] Martinez M.D. 50557 726.10 C.M.AHeladio 726.10 726.19 Office Visit 11/06/2014 12:00p [facility] Sanket Rapp 40244 726.32 M.Jonah 794.31 272.0 401.1 V72.81 Office Visit 07/29/2014 11:00a [facility] Jada GruberJoão, 08755 726.32 Of C.M.Vanda Guerrero 354.0 Office Visit 05/14/2014 10:15a [facility] J[facility] Ritu, 46103 354.0 Of C.M.Vanda Guerrero 354.2 726.32 Office Visit 2014 10:30a [facility] Jada Ritu, 06128 354.0 Of C.M.A. Yolanda 354.0 354.2 726.32 726.32 Office Visit 01/13/2014 10:45a [facility] Jada GruberJoão, 95306 354.0 Of C.Misbah Guerrero 354.2 726.32 726.31 Office Visit 10/24/2013 10:45a [facility] Martinez M.D. 81777 726.32 C.M.AHeladio Office Visit 09/17/2013 2:15p [facility] BLU Rae 70328 726.32 C.M.AHeladio Office Visit 08/02/2013 11:15a [facility] Jada 25673 726.32 Estrellita Chaney M.D. Office Visit 05/24/2013 11:15a [facility] 46722 726.32 C.MLeah Chaney M.D. Plan of Care 02/06/2018 - Arianna Saxena, N.P.I10 Essential (primary) fwcwdnqhqzeaH05.00 Dyspnea, nxukfzjxqvrT73.2 Old myocardial pdmpxquxkdX55.10 Athscl heart disease of [place] coronary artery w/o ang pctrsNew Labs:[facility]: Stress test low risk - reassuring.Follow up:Tamela BUNCH 3moRecommendations:Start nitro patch daily when approved Call is worsening headache, dizziness or low BP reading systolic less than 100
[2018-02-21] MEDS ORDERED: Albuterol/Ipratropium NEB.SOL* Albuterol 2.5 MG/Ipratropium 0.5 MG 3 ML INH ONE (00:56)
[2018-02-21] MEDS ORDERED: Magnesium Sulfate 2 GM IV* 2 GM/50 ML BAG IVPB ONE (00:59)
[2018-02-21] MEDS ORDERED: methylPREDNISolone 125 MG* 2 ML VIAL IV ONE (00:59)
[2018-02-21 01:25] LABS: Hematocrit 46 % (35-47); Hemoglobin 15.8 g/dl (12.0-16.0); Mean Corpuscular HGB Conc 35 g/dl (31-36); Mean Corpuscular Hemoglobin 32 pg (27-31); Mean Corpuscular Volume 91 fL (80-97); Red Blood Count 5.03 10^6/ul (4.0-5.4); Red Cell Distribution Width 13 % (10.5-15); White Blood Count 6.5 10^3/ul (3.5-10.8)
[2018-02-21 01:29] LABS: INR 1.06 (0.77-1.02)
[2018-02-21] MEDS ORDERED: Levofloxacin 750 MG IVPREMIX(* 750 MG/150 ML BAG IVPB ONE (01:30)
[2018-02-21 01:41] LABS: EGFR Non-African American 81.9 (>60)
[2018-02-21 01:48] LABS: ABS Basophils 0.1 10^3/ul (0-0.2); ABS Eosinophils 0 10^3/ul (0-0.6); ABS Lymphocytes 1.1 10^3/ul (1.0-4.8); ABS Monocytes 0.6 10^3/ul (0-0.8); ABS Neutrophils 4.8 10^3/ul (1.5-7.7); ABS Nucleated RBC 0 10^3/ul; Eosinophil % 0.1 % (0-6); Lymphocyte % 16.2 % (25-47); Mean Platelet Volume 10.2 um3 (7.4-10.4); Nucleated Red Blood Cells % 0; Platelet Count 94 10^3/ul (150-450)
--- NOTE | 2018-02-21 02:16 | ED ---
Mario Marcial Angela, scribed for Lea Meza MD on 02/21/18 at 0103 . Shortness of Breath - HPI Summary HPI Summary: This pt is a 57 y/o female presenting to [facility] c/o SOB since 23:00 last night, on 02/20/18. Pt reports she began to have SOB last night and then had chest pain. She states she took 2 SL nitroglycerin and her chest pain resolved. Pt continues to have chest pain currently. She additionally notes she began to have a nonproductive cough today. Pt has an inhaler, which she has used twice today with no relief. She had a stress test on 02/02/18 which showed low risk with an ejection fraction of 68%. PMHx: borderline COPD, [place] s/p catheterization (2 years ago). Pt is a current smoker, has smoked for 44 years now. - History of Current Complaint Chief Complaint: EDShortnessOfBreath Time Seen by Provider: 02/21/18 00:46 Hx Obtained From: Patient Onset/Duration: Lasting Hours, Still Present Timing: Constant Current Severity: Moderate Dyspnea At: Rest Aggrevating Factors: Nothing Alleviating Factors: Nothing Associated Signs & Symptoms: Cough (Nonproductive) - Allergy/Home Medications Allergies/Adverse Reactions: Allergies Allergy/AdvReac Type Severity Reaction Status Date / Time No Known Allergies Allergy Verified 02/21/18 00:36 PMH/Surg Hx/FS Hx/Imm Hx Endocrine/Hematology History: Denies: Hx Anticoagulant Therapy, Hx Diabetes, Hx Thyroid Disease Cardiovascular History: Reports: Hx Angina, Hx Coronary Artery Disease, Hx Hypertension - TREATED, Hx Myocardial Infarction, Other Cardiovascular Problems/ Disorders Denies: Hx Hypercholesterolemia, Hx Pacemaker/ICD, Hx Valvular Heart Disease Respiratory History: Reports: Hx Asthma - NO INHALER NEEDED, Other Respiratory Problems/Disorders - SMOKER Denies: Hx Chronic Obstructive Pulmonary Disease (COPD) GI History: Denies: Hx Ulcer History: Denies: Hx Dialysis, Hx Renal Disease Musculoskeletal History: Reports: Other Musculoskeletal History - 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 1981 [facility]. 1986 [facility] [place], [place]. 11/13/14 LEFT ELBOW SURGERY, [facility]. 07/2015 RIGHT ELBOW SURGERY AND CARPAL TUNNEL RELEASE, [facility] Hx Anesthesia Reactions: No - Immunization History Date of Tetanus Vaccine: PT STATES UNSURE Date of Influenza Vaccine: NONE Infectious Disease History: No Infectious Disease History: Denies: Hx Hepatitis, Hx Human Immunodeficiency Virus (HIV), Traveled Outside the [place] in Last 30 Days - Family History Known Family History: Positive: Cardiac Disease - Brother (52) and father had an [place]. - Social History Alcohol Use: Occasionally Substance Use Type: Reports: None Smoking Status (MU): Light Every Day Tobacco Smoker Type: Cigarettes Amount Used/How Often: LESS THAN 1 PPD Length of Time of Smoking/Using Tobacco: 44 YEARS Have You Smoked in the Last Year: Yes Review of Systems Negative: Fever, Chills Negative: Chest Pain Positive: Shortness Of Breath, Cough Musculoskeletal: Negative Skin: Negative Neurological: Negative All Other Systems Reviewed And Are Negative: Yes Physical Exam - Summary Physical Exam Summary: VITAL SIGNS: Reviewed. GENERAL: Patient is a well-developed and nourished female who is lying comfortable in the stretcher. Patient is not in any acute respiratory distress. HEAD AND FACE: No signs of trauma. No ecchymosis, hematomas or skull depressions. No sinus tenderness. EYES: PERRLA, EOMI x 2, No injected conjunctiva, no nystagmus. EARS: Hearing grossly intact. Ear canals and tympanic membranes are within normal limits. MOUTH: Oropharynx within normal limits. NECK: Supple, trachea is midline, no adenopathy, no JVD, no carotid bruit, no c- spine tenderness, neck with full ROM. CHEST: Symmetric, no tenderness at palpation LUNGS: Decreased breath sounds bilaterally. CVS: Regular rate and rhythm, S1 and S2 present, no murmurs or gallops appreciated. ABDOMEN: Soft, non-tender. No signs of distention. No rebound no guarding, and no masses palpated. Bowel sounds are normal. EXTREMITIES: FROM in all major joints, no edema, no cyanosis or clubbing. NEURO: Alert and oriented x 3. No acute neurological deficits. Speech is normal and follows commands. SKIN: Dry and warm Triage Information Reviewed: Yes Vital Signs On Initial Exam: Initial Vitals Temp Pulse Resp BP Pulse Ox 98.7 F 107 32 124/60 98 02/21/18 00:31 02/21/18 00:31 02/21/18 00:31 02/21/18 00:31 02/21/18 00:31 Vital Signs Reviewed: Yes Diagnostics - Vital Signs Vital Signs Temp Pulse Resp BP Pulse Ox 02/21/18 00:31 98.7 F 107 32 124/60 98 - Laboratory Result Diagrams: 02/21/18 01:15 02/21/18 01:15 Lab Statement: Any lab studies that have been ordered have been reviewed, and results considered in the medical decision making process. - Radiology Chest XR Xray Interpretation: Positive (See Comments) - Bibasilar infiltrates, right more than left. Official radiology report is pending. Radiology Interpretation Completed By: ED Physician - EKG 01:52 Cardiac Rate: NL - at 83 bpm EKG Rhythm: Sinus Rhythm EKG Interpretation: Q waves in inferior leads. Re-Evaluation - Re-Evaluation First Eval Re-Evaluation Time: 01:57 Comment: I reviewed the lab and chest XR with the pt. I discussed the plan to admit. Course/Dx - Course Assessment/Plan: This pt is a 57 y/o female presenting to [facility] c/o SOB since 23 :00 last night, on 02/20/18. Pt reports she began to have SOB last night and then had chest pain. She states she took 2 SL nitroglycerin and her chest pain resolved. Pt continues to have chest pain currently. She additionally notes she began to have a nonproductive cough today. Pt had an stress test on 02/02/18 which showed low risk and ejection fraction of 68%. Chest XR shows bibasilar infiltrates, right more than left. In the ED course the pt was given albuterol , duoneb, magnesium sulfate, solu-medrol. I discussed pt care with Dr. Khan, hospitalist, who has agreed to admit the pt. - Diagnoses Provider Diagnoses: COPD (chronic obstructive pulmonary disease), Pneumonia - Physician Notifications Discussed Care of Patient With: Sofie Khan Time Discussed With Above Provider: 02:00 Instructed by Provider To: Other - I discussed pt care with Dr. Khan, hospitalist, who has agreed to admit the pt. Discharge - Sign-Out/Discharge Documenting (check all that apply): Discharge/Admit/Transfer - Admit to [facility] - Discharge Plan Condition: Stable Disposition: ADMITTED TO [facility] Referrals: Tere HURT,Sharon Bang [Primary Care Provider] - The documentation as recorded by the Mario tello Angela accurately reflects the service I personally performed and the decisions made by me, Lea Meza MD.
[2018-02-21] MEDS ORDERED: Senna TAB PO PRN (02:23)
[2018-02-21] MEDS ORDERED: Docusate CAP* 100 MG PO PRN (02:23)
[2018-02-21] MEDS ORDERED: Ondansetron INJ* 2 MG/ML VIAL IV PRN (02:23)
[2018-02-21] MEDS ORDERED: Acetaminophen TAB* 325 MG PO PRN (02:23)
[2018-02-21] MEDS ORDERED: Al Hydrox/Mg Hydrox/Simet LIQ* 30 ML UDC PO PRN (02:23)
[2018-02-21] MEDS ORDERED: Albuterol 2.5 MG/3 ML NEB.SOL* (0.083%) INH PRN (02:27)
[2018-02-21] MEDS: Albuterol 2.5 MG/3 ML NEB.SOL* (0.083%) INH SCH (06:37)
[2018-02-21] MEDS: oxyCODONE TAB* 5 MG TAB PO PRN ×3 (06:59→23:49)
[2018-02-21] MEDS: Heparin VIAL(*) 5000 UNITS/ML VIAL (FIVE THOUSAND) SUBCUT SCH ×3 (06:59→21:49)
--- NOTE | 2018-02-21 08:05 | RAD ---
Indication: Shortness of breath. Single frontal view of the chest performed at 0120 hours was reviewed. Comparison is made with previous exam dated July 09, 2016. No mediastinal shift is noted. Heart is of normal size and configuration. Lung chapa appear clear. IMPRESSION: NO ACTIVE CARDIOPULMONARY DISEASE IS NOTED.
[2018-02-21] MEDS: Clopidogrel TAB* 75 MG PO SCH (08:29)
[2018-02-21] MEDS: Aspirin 81 mg CHEW TAB* 81 MG TAB.CHEW PO SCH (08:29)
[2018-02-21] MEDS: Metoprolol Succinate XL TAB* 25 MG PO SCH (08:29)
[2018-02-21] MEDS: predniSONE TAB* 20 MG PO SCH (08:30)
[2018-02-21] MEDS: Levofloxacin 750 MG IVPREMIX(* 750 MG/150 ML BAG IVPB SCH (08:36)
[2018-02-21] MEDS ORDERED: amLODIPine TAB* 5 MG PO SCH (09:00)
[2018-02-21] MEDS ORDERED: Nitroglycerin 0.2 MG/HR PATCH* (5 MG) TRANSDERM SCH (09:00)
[2018-02-21] MEDS ORDERED: Lisinopril TAB* 5 MG PO SCH (09:00)
--- NOTE | 2018-02-21 11:50 | HP ---
CC: JOSE Chaidez. HISTORY AND PHYSICAL: DATE OF ADMISSION: 02/21/18. TIME OF EVALUATION: 0200. PRIMARY CARE PHYSICIAN: JOSE Chaidez. CHIEF COMPLAINT: Shortness of breath and chest pain. HISTORY OF PRESENT ILLNESS: This is a 57-year-old female with a past medical history of COPD, on room air, tobacco use, coronary artery disease, who presented to the emergency room with acute onset of shortness of breath and chest pain. The patient states she has had a URI illness with sinus issues for the past several days. Last night around 11:00 p.m., she began having productive cough, shortness of breath and chest pain. She also states she was having fevers and chills. No nausea, vomiting, abdominal pain or diarrhea. No urinary symptoms. She has had constipation secondary to her narcotic use. Otherwise, review of systems is negative. In the emergency room, the patient had labs, imaging. She was given albuterol neb, 50 mg of magnesium and Solu-Medrol 125 mg and was referred to the hospitalist service for further evaluation. PAST MEDICAL HISTORY: 1. COPD on room air. 2. Tobacco use. 3. History of an [place] with nonobstructive coronary artery disease. 4. Hypertension. 5. Chronic pain in her arm secondary to multiple surgeries in her arms. 6. History of thrombocytopenia. 7. Hyperlipidemia. MEDICATIONS: 1. Albuterol MDI as needed. 2. Benzonatate 200 mg t.i.d. as needed. 3. Amlodipine 10 mg p.o. daily. 4. Plavix 75 mg daily. 5. Metoprolol 25 mg p.o. daily. 6. Lisinopril 5 mg daily. 7. Aspirin 81 mg daily. 8. Atorvastatin 40 mg daily. 9. Nitro 0.2 mg patch; however, she was worried about starting this and has not yet started it. 10. Oxycodone 10 mg every 8 hours as needed. ALLERGIES: No known drug allergies. FAMILY HISTORY: Mother at age 39 from complications related to appendicitis. Father at age 41 from an [place]. SOCIAL HISTORY: The patient lives at home with her daughter and a few grandchildren. Her daughter is Veronica Hayden is her healthcare proxy. She is down to less than a pack per day, but she has been smoking for the past 46 years. She states she has plans to quit in March. She drinks about three beers per week. Code status is full code. REVIEW OF SYSTEMS: A 14-point review of systems as mentioned in the HPI, otherwise, negative. PHYSICAL EXAMINATION GENERAL: No acute distress. Resting comfortably. VITAL SIGNS: Temp 98.7, pulse rate 107, respiratory rate 32, oxygen saturation 98% on room air, and blood pressure 124/60. HEENT: Head is normocephalic. Pupils are equally reactive. Anicteric. Oropharynx: Mucous membranes are moist. NECK: Supple. No lymphadenopathy. RESPIRATORY: Diminished breath sounds. Prolonged expiratory phase. Faint bilateral expiratory wheezing. CARDIAC: Tachycardia. Soft systolic murmur heard throughout. ABDOMEN: Soft, nontender, and nondistended. EXTREMITIES: No clubbing, cyanosis or edema. +1 DPs. NEUROLOGIC: Alert and oriented x3. No gross focal neurologic deficits. DIAGNOSTIC STUDIES/LABORATORY DATA: White count 6.5, hemoglobin 15.8, hematocrit 46, platelets 94. INR is 1.06. Sodium 132, potassium 3.7, chloride 103, bicarb 22, BUN 11, creatinine 0.73. Glucose 109, CRP of 18. EKG shows normal sinus rhythm. Chest x-ray some prominent opacifications more pronounced in the left middle lobe. ASSESSMENT: This is a 57-year-old female with past medical history of chronic obstructive pulmonary disease and tobacco use presents to the emergency room with acute onset of shortness of breath and chest pain. Shortness of breath with chest pain. The patient's history and physical is most consistent with a COPD exacerbation. It looks like she does have some opacification on her chest x-ray although no white count or fever here yet. Plan: We will continue her Levaquin for now. Follow up official read of chest xray. Check her sputum culture. Would continue on prednisone and albuterol treatments and cough suppressants. CHRONIC MEDICAL PROBLEMS: 1. Coronary artery disease. Continue her on her aspirin and Plavix. 2. Hypertension. The patient is on multiple antihypertensives, although she was nervous about starting her Nitro-patch. We will hold her amlodipine and continue her metoprolol, lisinopril, and start her on a Nitro-patch and continue to trend her troponins secondary to chest pain though I suspect it is related to her COPD. 3. Hyperlipidemia: Resume her atorvastatin. 4. Chronic pain: Resume her oxycodone. 5. Fluid, electrolytes, nutrition: Cardiac diet. 6. DVT prophylaxis: The patient scores high risk. We will place her on heparin subcu t.i.d. 7. Code status: Full code. PATIENT TIME: Greater than 45 minutes was spent doing the history and physical , more than half the time was spent in direct patient contact. [id number]/CPS #: [id number] RAYMUNDO
[2018-02-21] MEDS: Benzonatate CAP* 100 MG PO PRN (16:31)
[2018-02-21] MEDS: Atorvastatin* 40 MG TAB PO SCH (16:31)
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
[2018-02-21] MEDS ORDERED: Nitro Patch/OINT Remove PATCH OFF SCH (21:00)
[2018-02-22] MEDS: Heparin VIAL(*) 5000 UNITS/ML VIAL (FIVE THOUSAND) SUBCUT SCH ×2 (05:15→13:59)
[2018-02-22] MEDS: Metoprolol Succinate XL TAB* 25 MG PO SCH (08:13)
[2018-02-22] MEDS: oxyCODONE TAB* 5 MG TAB PO PRN ×2 (08:37→16:57)
[2018-02-22] MEDS: Aspirin 81 mg CHEW TAB* 81 MG TAB.CHEW PO SCH (08:38)
[2018-02-22] MEDS: Clopidogrel TAB* 75 MG PO SCH (08:38)
[2018-02-22] MEDS: Benzonatate CAP* 100 MG PO PRN (08:38)
[2018-02-22] MEDS: predniSONE TAB* 20 MG PO SCH (08:38)
[2018-02-22] MEDS: Levofloxacin 750 MG IVPREMIX(* 750 MG/150 ML BAG IVPB SCH (08:39)
[2018-02-22] MEDS ORDERED: Nitroglycerin 0.1 mg/Hr PATCH* (2.5 MG) TRANSDERM SCH (09:00)
[2018-02-22] MEDS ORDERED: Magnesium CITRATE* 300 ML BTL PO ONE (14:00)
[2018-02-22 14:54] VITALS: BP 132/60
[2018-02-22] MEDS: Atorvastatin* 40 MG TAB PO SCH (16:57)
[2018-02-22] MEDS ORDERED: Nitro Patch/OINT Remove PATCH OFF SCH (21:00)
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
== END 2018-02-22 17:10 | disposition home or self-care (01) ==
LOC: ED 00:29 → MEDTELE 02:23
PROVIDERS: ADMIT Pediatrics; ATTEND Internal Medicine
DX: J44.1 Chronic obstructive pulmonary disease with (acute) exacerbation (principal); I20.9 Angina pectoris, unspecified; R06.02 Shortness of breath; Z79.82 Long term (current) use of aspirin; I44.7 Left bundle-branch block, unspecified; F17.210 Nicotine dependence, cigarettes, uncomplicated; I25.10 Atherosclerotic heart disease of native coronary artery without angina pectoris; I25.2 Old myocardial infarction; I10 Essential (primary) hypertension; G89.29 Other chronic pain; Z86.2 Personal history of diseases of the blood and blood-forming organs and certain disorders involving the immune mechanism; E78.5 Hyperlipidemia, unspecified; I95.9 Hypotension, unspecified; Z95.5 Presence of coronary angioplasty implant and graft
CPT/HCPCS: 36415; 71045; 80053; 83605; 83880; 84484; 85025; 85060; 85610; 85730; 86140; 87040; 87502; 93005; 96374; 99284; A9270-GY; G0378; J1644; J2930; J3475; J7512

== ENCOUNTER 2019-02-14 17:58 | Inpatient (IN) | payer MEDICARE, OTHER ==
[2019-02-14] MEDS ORDERED: Midazolam* 1 MG/ML 5 ML VIAL (5 MG) ONE (18:12)
[2019-02-14] MEDS ORDERED: fentaNYL* 50 MCG/ML 2 ML VIAL (100 MCG VIAL) ONE (18:12)
[2019-02-14] MEDS ORDERED: Diltiazem IV push/loading dose 5 MG/ML 5 ML vial (25 mg) IV SLOW PU ONE (18:15)
--- OUTSIDE RECORDS SUMMARY | 2019-02-14 18:22 | XMS REPORT | Continuity of Care Document ---
:1960 External Reference #:[id number] Author Name Brad Zamorano DO MPH Address [address] [facility], [address] [place] [address] Care Team Providers Name Role Phone Indra Blair M.D. 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 [place] [address] Advance Directives Description No Information Available Problems Description No Information Family History Date Family Member(s) Observation Comments Father due to AL () Mother due to Appendicitis () Children 1 Siblings 5 2 living Grandchildren 3 Social History Type Date Description Comments Sex Unknown Marital Status Occupation Unemployed Work Status Not Currently Working Cigarette Use Current Cigarette Smoker 1 Pack Daily ETOH Use Occasionally consumes beer Tobacco Use Start: Unknown End: Unknown Patient is a former smoker Smoking Status Reviewed: 01/31/19 Patient is a former smoker Allergies, Adverse Reactions, Alerts Description No Known Drug Allergies Medications Active Medications SIG Qnty Indications Ordering Date Provider Oxycodone HCL si by mouth 120tabs Brad Zamorano, 02/29/2016 10mg every 6 hours as DO, M[facility] Tablets directed chronic pain patient dosage change, increase due to pain and weather Aspirin si by mouth Unknown 81mg Chewtabs every day as directed chuck test test only Atorvastatin Calcium 1 daily Unknown 40mg Tablets Metoprolol Succinate 1 daily Unknown ER 50mg Tablets ER 24HR Lisinopril 1/2 daily Unknown 5mg Tablets Ventolin HFA 1-2 puffs as Unknown needed every 4-6 108(90Base) mcg/Act hours for Aerosol shortness for breath Tizanidine HCL si/2-1 by Unknown 4mg mouth every 8 Tablets hours as directed History Medications Losartan Potassium 1 by mouth daily Unknown - 11/29/2016 50mg Tablets Hydrocodone-Acetaminophen take 1 tablet by Unknown - 2015 5-325mg mouth every 6hours as Tablets directed chronic pain. Cyclobenzaprine HCL si by mouth twice Unknown - 2015 10mg Tablets a day as directed Amlodipine Besylate 1 daily Unknown - 02/26/2018 10mg Tablets Clopidogrel Bisulfate 1 daily Unknown - 05/24/2018 75mg Tablets Nitroglycerin as needed Unknown - 02/26/2018 0.4mg Tablets Sub Benzonatate 1 PO Q8H Unknown - 05/24/2018 200mg Capsules Levofloxacin 1 by mouth every day Unknown - 05/24/2018 750mg Tablets as directed Immunizations Description No Information Available Vital Signs Date Vital Result Comment 01/31/2019 10:24am BP Systolic 132 mmHg BP Diastolic 84 mmHg Heart Rate 82 /min Respiratory Rate 20 /min Height 64 inches 5'4" Weight 200.00 lb Pain Level 6 Pain at this time. Pain Level With Medicine 5 on average with meds Pain Level Without Medicine 9 without meds BMI (Body Mass Index) 34.3 kg/m2 01/01/2019 10:08am BP Systolic 140 mmHg BP Diastolic 86 mmHg Heart Rate 82 /min Respiratory Rate 20 /min Height 64 inches 5'4" Weight 200.00 lb Pain Level 7 Pain at this time. Pain Level With Medicine 6 on average with meds Pain Level Without Medicine 10 10 without meds BMI (Body Mass Index) 34.3 kg/m2 12/03/2018 2:12pm BP Systolic 122 mmHg BP Diastolic 82 mmHg Heart Rate 84 /min Respiratory Rate 20 /min Height 64 inches 5'4" Weight 204.00 lb Pain Level 6 Pain at this time. Pain Level With Medicine 5 on average with meds Pain Level Without Medicine 10 07/25 without meds BMI (Body Mass Index) 35.0 kg/m2 10/26/2018 11:34am BP Systolic 128 mmHg BP Diastolic 84 mmHg Heart Rate 86 /min Respiratory Rate 20 /min Height 64 inches 5'4" Weight 196.00 lb Pain Level 7 Pain at this time. Pain Level With Medicine 6 on average with meds Pain Level Without Medicine 10 07/25 without meds BMI (Body Mass Index) 33.6 kg/m2 09/27/2018 9:22am BP Systolic 138 mmHg BP Diastolic 88 mmHg Heart Rate 86 /min Respiratory Rate 20 /min Height 64 inches 5'4" Weight 194.00 lb Pain Level 7 Pain at this time. Pain Level With Medicine 6 on average with meds Pain Level Without Medicine 07/25 without meds BMI (Body Mass Index) 33.3 kg/m2 08/28/2018 9:52am BP Systolic 144 mmHg BP Diastolic 80 mmHg Heart Rate 76 /min Respiratory Rate 20 /min Height 64 inches 5'4" Weight 184.00 lb Pain Level 8 Pain at this time. Pain Level With Medicine 8 on average with meds Pain Level Without Medicine 07/25 without meds BMI (Body Mass Index) 31.6 kg/m2 07/26/2018 3:22pm BP Systolic 140 mmHg BP Diastolic 82 mmHg Heart Rate 78 /min Respiratory Rate 20 /min Height 64 inches 5'4" Weight 184.00 lb Pain Level 8 Pain at this time. Pain Level With Medicine 7 on average with meds Pain Level Without Medicine 07/25 without meds BMI (Body Mass Index) 31.6 kg/m2 06/29/2018 10:24am BP Systolic 130 mmHg BP Diastolic 76 mmHg Heart Rate 80 /min Respiratory Rate 20 /min Height 64 inches 5'4" Weight 186.00 lb Pain Level 7 Pain at this time. Pain Level With Medicine 6 on average with meds Pain Level Without Medicine 10 07/25 without meds BMI (Body Mass Index) 31.9 kg/m2 05/24/2018 2:50pm BP Systolic 128 mmHg BP Diastolic 82 mmHg Heart Rate 78 /min Respiratory Rate 20 /min Height 64 inches 5'4" Weight 184.00 lb Pain Level 4 Pain at this time. Pain Level With Medicine 4 on average with meds Pain Level Without Medicine 10 10/10 without meds BMI (Body Mass Index) 31.6 kg/m2 04/24/2018 10:33am BP Systolic 132 mmHg BP Diastolic 84 mmHg Heart Rate 80 /min Respiratory Rate 20 /min Height 64 inches 5'4" Weight 188.00 lb Pain Level 4 Pain at this time. Pain Level With Medicine 4 on average with meds Pain Level Without Medicine 07/25 without meds BMI (Body Mass Index) 32.3 kg/m2 03/29/2018 3:49pm BP Systolic 144 mmHg BP Diastolic 86 mmHg Heart Rate 82 /min Respiratory Rate 20 /min Height 64 inches 5'4" Weight 188.00 lb Pain Level 8 Pain at this time. Pain Level With Medicine 6 on average with meds Pain Level Without Medicine 07/25 without meds BMI (Body Mass Index) 32.3 kg/m2 02/26/2018 10:18am BP Systolic 132 mmHg BP Diastolic 80 mmHg Heart Rate 78 /min Respiratory Rate 20 /min Height 64 inches 5'4" Weight 188.00 lb Pain Level 4 Pain at this time. Pain Level With Medicine 4 on average with meds Pain Level Without Medicine 07/25 without meds BMI (Body Mass Index) 32.3 kg/m2 01/25/2018 11:06am BP Systolic 136 mmHg BP Diastolic 84 mmHg Heart Rate 80 /min Respiratory Rate 20 /min Height 64 inches 5'4" Weight 192.00 lb Pain Level 4 Pain at this time. Pain Level With Medicine 4 on average with meds Pain Level Without Medicine 07/25 without meds BMI (Body Mass Index) 33.0 kg/m2 12/26/2017 3:44pm BP Systolic 138 mmHg BP Diastolic 76 mmHg Heart Rate 78 /min Respiratory Rate 20 /min Height 64 inches 5'4" Weight 194.00 lb Pain Level 4 Pain at this time. Pain Level With Medicine 3 on average with meds Pain Level Without Medicine 07/25 without meds BMI (Body Mass Index) 33.3 kg/m2 11/28/2017 11:13am BP Systolic 128 mmHg BP Diastolic 82 mmHg Heart Rate 88 /min Respiratory Rate 20 /min Height 64 inches 5'4" Weight 196.00 lb Pain Level 4 Pain at this time. Pain Level With Medicine 4 on average with meds Pain Level Without Medicine 07/25 without meds BMI (Body Mass Index) 33.6 kg/m2 10/26/2017 11:09am BP Systolic 140 mmHg BP Diastolic 80 mmHg Heart Rate 84 /min Respiratory Rate 20 /min Height 64 inches 5'4" Weight 190.00 lb Pain Level 4 Pain at this time. Pain Level With Medicine 3 on average with meds Pain Level Without Medicine 10 07/25 without meds BMI (Body Mass Index) 32.6 kg/m2 09/29/2017 1:04pm BP Systolic 144 mmHg BP Diastolic 86 mmHg Heart Rate 84 /min Respiratory Rate 20 /min Height 64 inches 5'4" Weight 193.00 lb Pain Level 6 Pain at this time. Pain Level With Medicine 6 on average with meds Pain Level Without Medicine 10 07/25 without meds BMI (Body Mass Index) 33.1 kg/m2 08/30/2017 11:00am BP Systolic 138 mmHg BP Diastolic 86 mmHg Heart Rate 84 /min Respiratory Rate 20 /min Height 64 inches 5'4" Weight 194.00 lb Pain Level 5 Pain at this time. Pain Level With Medicine 4 on average with meds Pain Level Without Medicine 07/25 without meds BMI (Body Mass Index) 33.3 kg/m2 08/16/2017 2:52pm BP Systolic 130 mmHg BP Diastolic 80 mmHg Heart Rate 84 /min Respiratory Rate 20 /min Height 64 inches 5'4" Weight 189.00 lb Pain Level 3 Pain at this time. Pain Level With Medicine 3 on average with meds Pain Level Without Medicine 07/25 without meds Pain Level After Procedure 2 BP Systolic Recheck 138 mmHg Pulse: 92 BP Diastolic Recheck 86 mmHg Pulse: 92 BMI (Body Mass Index) 32.4 kg/m2 07/31/2017 11:31am BP Systolic 126 mmHg BP Diastolic 74 mmHg Heart Rate 78 /min Respiratory Rate 20 /min Height 64 inches 5'4" Weight 189.00 lb Pain Level 4 Pain at this time. Pain Level With Medicine 3 on average with meds Pain Level Without Medicine 07/25 without meds BMI (Body Mass Index) 32.4 kg/m2 06/30/2017 10:59am BP Systolic 130 mmHg BP Diastolic 76 mmHg Heart Rate 84 /min Respiratory Rate 20 /min Height 64 inches 5'4" Weight 189.00 lb Pain Level 5 Pain at this time. Pain Level With Medicine 4 on average with meds Pain Level Without Medicine 10 07/25 without meds BMI (Body Mass Index) 32.4 kg/m2 06/13/2017 3:05pm BP Systolic 148 mmHg BP Diastolic 82 mmHg Heart Rate 84 /min Respiratory Rate 20 /min Height 64 inches 5'4" Weight 187.00 lb Pain Level 3 Pain at this time. Pain Level With Medicine 3 on average with meds Pain Level Without Medicine 10 07/25 without meds Pain Level After Procedure 3 BP Systolic Recheck 126 mmHg Pulse: 80 BP Diastolic Recheck 78 mmHg Pulse: 80 BMI (Body Mass Index) 32.1 kg/m2 06/01/2017 11:01am BP Systolic 136 mmHg BP Diastolic 84 mmHg Heart Rate 88 /min Respiratory Rate 20 /min Height 64 inches 5'4" Weight 187.00 lb Pain Level 8 Pain at this time. Pain Level With Medicine 7 on average with meds Pain Level Without Medicine 10 07/25 without meds BMI (Body Mass Index) 32.1 kg/m2 04/27/2017 10:58am BP Systolic 132 mmHg BP Diastolic 84 mmHg Heart Rate 78 /min Respiratory Rate 20 /min Height 64 inches 5'4" Weight 186.00 lb Pain Level 3 Pain at this time. Pain Level With Medicine 3 on average with meds Pain Level Without Medicine 10 07/25 without meds BMI (Body Mass Index) 31.9 kg/m2 04/10/2017 10:18am BP Systolic 126 mmHg BP Diastolic 70 mmHg Heart Rate 78 /min Respiratory Rate 18 /min Height 64 inches 5'4" Weight 188.00 lb Pain Level 3 Pain at this time. Pain Level With Medicine 3 on average with meds Pain Level Without Medicine 10 07/25 without meds BMI (Body Mass Index) 32.3 kg/m2 03/29/2017 10:58am BP Systolic 132 mmHg BP Diastolic 80 mmHg Heart Rate 76 /min Respiratory Rate 16 /min Height 64 inches 5'4" Weight 190.00 lb Pain Level 4 4/10, Pain at this time. Pain Level With Medicine 4 4/10, on average with meds Pain Level Without Medicine 10 07/25 without meds BMI (Body Mass Index) 32.6 kg/m2 02/28/2017 11:00am BP Systolic 126 mmHg BP Diastolic 80 mmHg Heart Rate 76 /min Respiratory Rate 16 /min Height 64 inches 5'4" Weight 190.00 lb Pain Level 8 8/10, Pain at this time. Pain Level With Medicine 2 2/10, on average with meds Pain Level Without Medicine 10 10/10 without meds Pain Level After Procedure 4 BP Systolic Recheck 128 mmHg Pulse: 84 BP Diastolic Recheck 82 mmHg Pulse: 84 BMI (Body Mass Index) 32.6 kg/m2 01/27/2017 11:29am BP Systolic 132 mmHg BP Diastolic 72 mmHg Heart Rate 76 /min Respiratory Rate 16 /min Height 64 inches 5'4" Weight 189.00 lb Pain Level 8 8/10, Pain at this time. Pain Level With Medicine 3 3/10, on average with meds Pain Level Without Medicine 10 10/10 without meds BMI (Body Mass Index) 32.4 kg/m2 12/30/2016 11:43am BP Systolic 128 mmHg BP Diastolic 78 mmHg Heart Rate 80 /min Respiratory Rate 20 /min Height 64 inches 5'4" Weight 190.00 lb Pain Level 5 Pain Level With Medicine 5 Pain Level Without Medicine 10 BMI (Body Mass Index) 32.6 kg/m2 11/29/2016 11:23am BP Systolic 128 mmHg BP Diastolic 80 mmHg Heart Rate 76 /min Respiratory Rate 16 /min Height 64 inches 5'4" Weight 188.00 lb Pain Level 7 7/10, Pain at this time. Pain Level With Medicine 2 2/10, on average with meds Pain Level Without Medicine 10 07/25 without meds BMI (Body Mass Index) 32.3 kg/m2 10/27/2016 11:25am BP Systolic 134 mmHg BP Diastolic 78 mmHg Heart Rate 70 /min Respiratory Rate 16 /min Height 64 inches 5'4" Weight 182.00 lb Pain Level 8 8/10, Pain at this time. Pain Level With Medicine 3 3/10, on average with meds Pain Level Without Medicine 10 10/10 without meds BMI (Body Mass Index) 31.2 kg/m2 09/27/2016 10:51am BP Systolic 130 mmHg BP Diastolic 80 mmHg Heart Rate 70 /min Respiratory Rate 18 /min Height 64 inches 5'4" Weight 186.00 lb Pain Level 6 6/10, Pain at this time. Pain Level With Medicine 2 2/10, on average with meds Pain Level Without Medicine 10 1010 without meds BMI (Body Mass Index) 31.9 kg/m2 08/26/2016 11:02am BP Systolic 128 mmHg BP Diastolic 78 mmHg Heart Rate 76 /min Respiratory Rate 20 /min Height 64 inches 5'4" Weight 180.00 lb Pain Level 6 Pain at this time. Pain Level With Medicine 5 on average with meds Pain Level Without Medicine 07/25 without meds BMI (Body Mass Index) 30.9 kg/m2 07/29/2016 11:06am BP Systolic 128 mmHg BP Diastolic 80 mmHg Heart Rate 74 /min Respiratory Rate 20 /min Height 64 inches 5'4" Weight 181.00 lb Pain Level 7 Pain at this time. Pain Level With Medicine 6 on average with meds Pain Level Without Medicine 07/25 without meds BMI (Body Mass Index) 31.1 kg/m2 06/29/2016 10:56am BP Systolic 130 mmHg BP Diastolic 80 mmHg Heart Rate 78 /min Respiratory Rate 18 /min Height 64 inches 5'4" Weight 196.00 lb Pain Level 4 Pain at this time. Pain Level With Medicine 4 on average with meds Pain Level Without Medicine 07/25 without meds BMI (Body Mass Index) 33.6 kg/m2 05/30/2016 11:09am BP Systolic 128 mmHg BP Diastolic 80 mmHg Heart Rate 82 /min Respiratory Rate 20 /min Height 64 inches 5'4" Weight 196.00 lb Pain Level 3 Pain at this time. Pain Level With Medicine 2 on average with meds Pain Level Without Medicine 07/25 without meds BMI (Body Mass Index) 33.6 kg/m2 04/28/2016 11:29am BP Systolic 130 mmHg BP Diastolic 80 mmHg Heart Rate 74 /min Respiratory Rate 20 /min Height 64 inches 5'4" Weight 197.00 lb Pain Level 5 Pain at this time. Pain Level With Medicine 3 on average with meds Pain Level Without Medicine 07/25 without meds BMI (Body Mass Index) 33.8 kg/m2 03/29/2016 11:29am BP Systolic 144 mmHg BP Diastolic 86 mmHg Heart Rate 84 /min Respiratory Rate 20 /min Height 64 inches 5'4" Weight 202.00 lb Pain Level 3 Pain at this time. Pain Level With Medicine 3 on average with meds Pain Level Without Medicine 07/25 without meds BMI (Body Mass Index) 34.7 kg/m2 03/15/2016 11:26am BP Systolic 128 mmHg BP Diastolic 76 mmHg Heart Rate 78 /min Respiratory Rate 18 /min Height 64 inches 5'4" Weight 202.00 lb Pain Level 2 Pain at this time. Pain Level With Medicine 1 on average with meds Pain Level Without Medicine 07/25 without meds BMI (Body Mass Index) 34.7 kg/m2 02/29/2016 2:55pm BP Systolic 130 mmHg BP Diastolic 80 mmHg Heart Rate 84 /min Respiratory Rate 20 /min Height 64 inches 5'4" Weight 204.00 lb Pain Level 6 Pain at this time. Pain Level Without Medicine 10 07/25 without meds BMI (Body Mass Index) 35.0 kg/m2 Results Description No Information Available Procedures Date Code Description Status 08/28/2018 42675 Therapeutic, Prophylactic Or Diagnostic Injection Subq/Im Completed 06/29/2018 68039 Therapeutic, Prophylactic Or Diagnostic Injection Subq/Im Completed 05/24/2018 83999 Therapeutic, Prophylactic Or Diagnostic Injection Subq/Im Completed 04/24/2018 20874 Omt 1-2 Body Regions Completed 04/24/2018 57184 Therapeutic, Prophylactic Or Diagnostic Injection Subq/Im Completed 02/26/2018 57368 Omt 1-2 Body Regions Completed 02/26/2018 62592 Therapeutic, Prophylactic Or Diagnostic Injection Subq/Im Completed 12/26/2017 31791 Therapeutic, Prophylactic Or Diagnostic Injection Subq/Im Completed 10/26/2017 17720 Therapeutic, Prophylactic Or Diagnostic Injection Subq/Im Completed 09/29/2017 28335 Therapeutic, Prophylactic Or Diagnostic Injection Subq/Im Completed 08/16/2017 72486 U/S Guidance For Needle Placement Completed 08/16/201728590 Inject/Drain Arthrocentesis Major Joint/Bursa/Ganglion Completed Cyst 06/13/2017 59031 Inject/Drain Arthrocentesis Major Joint/Bursa/Ganglion Completed Cyst 06/13/2017 79159 U/S Guidance For Needle Placement Completed 02/28/2017 19199 Injection For Nerve Block, Suprascapular Nerve Completed 02/28/201739298 Injection, Single Or Mutiple Trigger Points One Or Two Completed Muscles 02/28/2017 Injection, Tendon Origin/Insertion Completed 01/27/2017 56247 Omt 1-2 Body Regions Completed 10/27/2016 43865 Omt 1-2 Body Regions Completed 09/27/2016 59930 Omt 1-2 Body Regions Completed 08/26/2016 06778 Omt 1-2 Body Regions Completed 07/29/2016 36289 Omt 1-2 Body Regions Completed 06/29/2016 27905 Omt 1-2 Body Regions Completed 04/28/2016 62168 Test Autonomic Nervous System, Sudomotor Completed 03/15/2016 86049 Omt 1-2 Body Regions Completed Encounters Type Date Location Provider Dx Diagnosis Office Visit 01/01/2019 Main Office as Of Brad Zamorano DO G89.21 Chronic pain due 10:15a 11/16/13 [facility] to trauma M25.512 Pain in left shoulder M25.522 Pain in left elbow 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 Z79.891 group home (current) use of opiate analgesic Office Visit 12/03/2018 2:45p Main Office as Brad Zamorano G89.21 Chronic pain due Of 11/16/13 DO, [facility] to trauma M25.512 Pain in left shoulder M25.522 Pain in left elbow 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 Office Visit 10/26/2018 11:00a Main Office as Brad Zamorano G89.21 Chronic pain due Of 11/16/13 DO, [facility] to trauma M25.512 Pain in left shoulder Z79.891 group home (current) use of opiate analgesic 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 Office Visit 09/27/2018 9:45a Main Office as Brad Zamorano G89.21 Chronic pain due Of 11/16/13 DO, [facility] to trauma M25.512 Pain in left shoulder M25.522 Pain in left elbow 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 Office Visit 08/28/2018 10:00a Main Office as Brad Zamorano G89.21 Chronic pain due Of 11/16/13 DO, [facility] to trauma M25.512 Pain in left shoulder M25.522 Pain in left elbow G56.02 Carpal tunnel syndrome, left upper limb Z79.891 group home (current) use of opiate analgesic R53.83 Other fatigue Z79.891 group home (current) use of opiate analgesic Office Visit 07/26/2018 4:00p Main Office as Brad Zamorano G89.21 Chronic pain due Of 11/16/13 DO, [facility] to trauma M25.512 Pain in left shoulder M25.522 Pain in left elbow G56.02 Carpal tunnel syndrome, left upper limb Z79.891 group home (current) use of opiate analgesic 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 Office Visit 06/29/2018 10:30a Main Office as Brad Zamorano G89.21 Chronic pain due Of 2 DO, [facility] to trauma M25.512 Pain in left shoulder M79.1 Myalgia R53.83 Other fatigue 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 Z79.891 group home (current) use of opiate analgesic Office Visit 05/24/2018 3:00p Main Office as Brad Zamorano G89.21 Chronic pain due Of 11/16/13 DO, [facility] to trauma M25.512 Pain in left shoulder M79.1 Myalgia R53.83 Other fatigue Z79.891 group home (current) use of opiate analgesic Z79.891 group home (current) use of opiate analgesic Office Visit 04/24/2018 10:45a Main Office as Brad Zamorano G89.21 Chronic pain due Of 11/16/13 DO, [facility] to trauma M25.512 Pain in left shoulder M99.07 Segmental and somatic dysfunction of upper extremity M79.1 Myalgia 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 R53.83 Other fatigue Z79.891 group home (current) use of opiate analgesic Office Visit 03/29/2018 4:00p Main Office as Brad Zamorano G89.21 Chronic pain due Of 2/10/29 DO, [facility] to trauma M25.512 Pain in left shoulder M25.522 Pain in left elbow M79.1 Myalgia 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 Office Visit 02/26/2018 10:45a Main Office as Brad Zamorano G89.21 Chronic pain due Of 11/16/13 DO, [facility] to trauma M25.512 Pain in left shoulder M99.07 Segmental and somatic dysfunction of upper extremity M25.522 Pain in left elbow R53.83 Other fatigue Z79.891 group home (current) use of opiate analgesic 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 Office Visit 01/25/2018 11:15a Main Office as Brad Zamorano G89.21 Chronic pain due Of 11/16/13 DO, [facility] to trauma M25.512 Pain in left shoulder M79.1 Myalgia Z79.891 group home (current) use of opiate analgesic Z79.891 group home (current) use of opiate analgesic Office Visit 12/26/2017 3:30p Main Office as Brad Zamorano G89.21 Chronic pain due Of 11/16/13 DO, [facility] to trauma M25.512 Pain in left shoulder M25.522 Pain in left elbow M25.532 Pain in left wrist M79.1 Myalgia R53.83 Other fatigue 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 Z71.89 Other specified counseling Z79.891 group home (current) use of opiate analgesic Office Visit 11/28/2017 11:00a Main Office as Brad Zamorano G89.21 Chronic pain due Of 11/16/13 DO, [facility] to trauma M25.512 Pain in left shoulder M25.522 Pain in left elbow M25.532 Pain in left wrist M79.1 Myalgia R53.83 Other fatigue Z79.891 group home (current) use of opiate analgesic 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 Office Visit 10/26/2017 11:15a Main Office as Brad Zamorano G89.21 Chronic pain due Of 11/16/13 DO, [facility] to trauma M25.532 Pain in left wrist M25.522 Pain in left elbow M25.512 Pain in left shoulder M79.1 Myalgia R53.83 Other fatigue 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 Z79.891 group home (current) use of opiate analgesic Office Visit 09/29/2017 1:00p Main Office as Brad Zamorano G89.21 Chronic pain due Of 11/16/13 DO, [facility] to trauma M25.522 Pain in left elbow M25.532 Pain in left wrist M25.512 Pain in left shoulder M79.1 Myalgia Z79.891 group home (current) use of opiate analgesic R53.83 Other fatigue Z79.891 group home (current) use of opiate analgesic Office Visit 08/30/2017 11:15a Main Office as Brad Zamorano G89.21 Chronic pain due Of 11/16/13 DO, [facility] to trauma M25.512 Pain in left shoulder M25.532 Pain in left wrist M25.522 Pain in left elbow M79.1 Myalgia 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 Z79.891 group home (current) use of opiate analgesic Office Visit 08/16/2017 3:00p Main Office as Brad Zamorano G89.21 Chronic pain due Of 11/16/13 DO, [facility] to trauma M25.512 Pain in left shoulder M25.532 Pain in left wrist M25.522 Pain in left elbow M79.1 Myalgia M65.88 Other synovitis and tenosynovitis, other site 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, cervicothoracic region Z79.891 group home (current) use of opiate analgesic 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 Office Visit 07/31/2017 11:45a Main Office as Brad Zamorano G89.21 Chronic pain due Of 11/16/13 DO, [facility] to trauma M25.512 Pain in left shoulder M25.532 Pain in left wrist M25.522 Pain in left elbow M79.1 Myalgia 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 Office Visit 06/30/2017 11:15a Main Office as Brad Zamorano G89.21 Chronic pain due Of 11/16/13 DO, [facility] to trauma M25.512 Pain in left shoulder Z79.891 group home (current) use of opiate analgesic 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 Office Visit 06/13/2017 3:00p Main Office as Brad Zamorano G89.21 Chronic pain due Of 11/16/13 DO, [facility] to trauma M25.512 Pain in left shoulder Z79.891 group home (current) use of opiate analgesic 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 Office Visit 06/01/2017 11:30a Main Office as Brad Zamorano G89.21 Chronic pain due Of 11/16/13 DO, MPH to trauma M25.561 Pain in right knee M25.512 Pain in left shoulder M25.532 Pain in left wrist M25.522 Pain in left elbow M79.1 Myalgia 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 Z79.891 group home (current) use of opiate analgesic Office Visit 04/27/2017 11:00a Main Office as Brad Zamorano G89.21 Chronic pain due Of 11/16/13 DO, MPH to trauma M25.532 Pain in left wrist M25.512 Pain in left shoulder M25.522 Pain in left elbow Z79.891 group home (current) use of opiate analgesic 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 Office Visit 04/10/2017 10:15a Main Office as Brad Zamorano G89.21 Chronic pain due Of 11/16/13 DO, MPH to trauma M25.532 Pain in left wrist M25.512 Pain in left shoulder M25.522 Pain in left elbow M54.12 Radiculopathy, cervical region Z71.89 Other specified counseling Z79.891 group home (current) use of opiate analgesic Z79.891 group home (current) use of opiate analgesic Office Visit 03/29/2017 10:45a Main Office as Dominique Ayala 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 M25.532 Pain in left wrist M25.512 Pain in left shoulder M25.522 Pain in left elbow M54.12 Radiculopathy, cervical region Z71.89 Other specified counseling 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 Z79.891 group home (current) use of opiate analgesic Office Visit 02/28/2017 11:00a Main Office as Dominique Ayala 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 M25.512 Pain in left shoulder M25.522 Pain in left elbow M25.532 Pain in left wrist M46.07 Spinal enthesopathy, lumbosacral region M54.12 Radiculopathy, cervical region M79.1 Myalgia 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 Office Visit 01/27/2017 11:15a Main Office as Dominique Ayala 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 M25.512 Pain in left shoulder M25.522 Pain in left elbow M25.532 Pain in left wrist M99.07 Segmental and somatic dysfunction of upper extremity Z71.89 Other specified counseling Office Visit 12/30/2016 11:45a Main Office as Brad Zamorano G89.21 Chronic pain due Of 11/16/13 DO, MPH to trauma M25.522 Pain in left elbow M25.532 Pain in left wrist M25.512 Pain in left shoulder 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 Z79.891 group home (current) use of opiate analgesic Office Visit 11/29/2016 11:15a Main Office as Dominique Ayala 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 M25.522 Pain in left elbow M25.532 Pain in left wrist M25.512 Pain in left shoulder 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 Office Visit 10/27/2016 11:15a Main Office as Dominique Ayala 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 M25.512 Pain in left shoulder M25.522 Pain in left elbow M25.532 Pain in left wrist M99.07 Segmental and somatic dysfunction of upper extremity Office Visit 09/27/2016 11:00a Main Office as Dominique Ayala 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 M25.532 Pain in left wrist M25.522 Pain in left elbow M25.512 Pain in left shoulder M99.07 Segmental and somatic dysfunction of upper extremity Office Visit 08/26/2016 11:15a Main Office as Brad Zamorano G89.21 Chronic pain due Of 11/16/13 DO, MPH to trauma M25.512 Pain in left shoulder M25.532 Pain in left wrist M25.522 Pain in left elbow M99.07 Segmental and somatic dysfunction of upper extremity 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 Office Visit 07/29/2016 11:00a Main Office as Brad Zamorano G89.21 Chronic pain due Of 11/16/13 DO, MPH to trauma M25.512 Pain in left shoulder M25.532 Pain in left wrist M25.522 Pain in left elbow M99.07 Segmental and somatic dysfunction of upper extremity 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 Office Visit 06/29/2016 11:00a Main Office as Brad Zamorano G89.21 Chronic pain due Of 11/16/13 DO, MPH to trauma M25.512 Pain in left shoulder M25.532 Pain in left wrist M25.522 Pain in left elbow M99.01 Segmental and somatic dysfunction of cervical region Z79.891 group home (current) use of opiate analgesic Office Visit 05/30/2016 11:00a Main Office as Brad Zamorano G89.21 Chronic pain due Of 11/16/13 DO, MPH to trauma M25.512 Pain in left shoulder M25.532 Pain in left wrist M25.522 Pain in left elbow G90.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 Z79.891 group home (current) use of opiate analgesic 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 Office Visit 04/28/2016 11:15a Main Office as Brad Zamorano G89.21 Chronic pain due Of 11/16/13 DO, MPH to trauma M25.512 Pain in left shoulder M25.532 Pain in left wrist M25.522 Pain in left elbow G90.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 Z79.891 group home (current) use of opiate analgesic 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 Office Visit 03/29/2016 11:30a Main Office as Brad Zamorano, G89.21 Chronic pain due Of 11/16/13 DO, MPH to trauma M25.512 Pain in left shoulder M25.532 Pain in left wrist M25.522 Pain in left elbow 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 Z79.891 group home (current) use of opiate analgesic Office Visit 02/29/2016 2:00p Main Office as Brad Zamorano G89.21 Chronic pain due Of 11/16/13 DO, MPH to trauma M25.522 Pain in left elbow M25.521 Pain in right elbow M25.512 Pain in left shoulder Z71.89 Other specified counseling Z71.3 Dietary counseling and surveillance 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 Symptoms and complaints discussed and reviewed today. No significant changes in physical findings. Continue current medical pain management.M25.522 Pain in left elbowComments:Chronic. Symptoms and complaints discussed and reviewed today. Physical findings warrant intervention - OMT. Continue current medical pain management.G56.02 Carpal tunnel syndrome, left upper limbComments:Chronic. Symptoms and complaints discussed and reviewed today. No significant changes in physical findings. Continue current medical pain management.M25.512 Pain in left shoulderComments:Chronic. Symptoms and complaints discussed and reviewed today. No significant changes in physical findings. Continue current medical pain management.M99.07 Segmental and somatic dysfunction of upper extremityComments:Chronic. Symptoms and complaints discussed and reviewed today. Somatic dysfunctions noted warrantingOMT to the shoulder. Continue current medical pain management and OMT. Myofascial restrictions. OMTperformed. MFR.Z79.891 group home (current) use of opiate analgesicNew Labs:Urine Drug Screen, Ordered: 01/31/19Comments:Urine drug screen sample taken. Rapid Point of Care Cup was reviewed in office with patient. Will send out UDT Rapid to Quantitative lab for confirmation testing. Urine Drug Testing (UDT) was done today to monitor opiate use and to monitor possible use of illicit substances. I will discuss the results at the next appointment from the Quantitative lab.The following tests were ordered:6 AM, AMPH, CLARIBEL, LARISSA, BUP, CARIS, COCM, COT, ETG, FENT, MCSHSG, OPI, OXY, PCP, TAPEN, XTSY, ZOLP. A urine drug test (UDT) using a rapid screen cup was ordered for this patient and collected on site today. Creatinine has been ordered as well for specimen validity, not for kidney function. Urine Drug Testing is a mandatory component of chronic opioid management, as part of the baseline assessment and ongoing re-assessment of opioid therapy. Per [place] [employer], [place] Non-Acute Pain Medical Treatment Guidelines, section F.3.d.i. This test is to be used in conjunction with other clinical information when decisions are to be made to continue, adjust or discontinue treatment. This information includes clinical observation, results of addiction screening, pill counts, and prescription drug monitoring reports. Preliminary UDT screen results are not final and should not be usedto determine patient care or plan of treatment. This sample will be sent out for a more comprehensive quantitative confirmation LCMS study. It is part of the treatment process of prescribing controlled substances and is considered standard of care at this clinic.AllComments:All above symptoms and complaints discussed as well as diagnoses reviewed.Continue trial of opioid pain management - note changes below; injection therapy, osteopathic manipulation ( OMT), PT / modalities, and consults as needed to manage chronic pain.Side effects discussed; anticipatory guidance given. Patient clearly understands and agrees with all medical treatments and suggestions. All medicines prescribed are adequate and appropriate for this patient's complaint of pain, medical history, physical, and personal goals.Goals of Treatment are to provide adequate and appropriate multidisciplinary medical pain management to increase/ maintain patient's quality of life and functionality while maintaining satisfactory side effect profile and minimizing intermediate end-organ damage. Activity as toleratedContinue with PCP
[2019-02-14] MEDS ORDERED: Diltiazem DRIP* 100 MG/100 ML ADDV.BAG IVPB ONE (18:24)
--- NOTE | 2019-02-14 18:25 | ED ---
Shortness of Breath - HPI Summary HPI Summary: Pt is a 58 y/o F presenting to the ED with a chief complaint of shortness of breath onset about 2 hours ago. Provider at bedside at 1808. She states she received a steroid injection in her back today, and states she used an inhaler and oxygen that provided very temporary relief, and she suddenly felt as though she was going to pass out, characterized by lightheadedness and dizziness. She also states that her neck is hurting her, and two days ago her hands turned purple d/t being at a higher elevation. The pt has a cardiac hx. - History of Current Complaint Chief Complaint: EDDysrhythmPalp Hx Obtained From: Patient Onset/Duration: Sudden Onset, Lasting Hours, Still Present Timing: Constant Current Severity: Severe Dyspnea At: Rest Aggrevating Factors: Nothing Alleviating Factors: Nothing Associated Signs & Symptoms: Dizzy - Allergy/Home Medications Allergies/Adverse Reactions: Allergies Allergy/AdvReac Type Severity Reaction Status Date / Time No Known Allergies Allergy Verified 07/25/18 12:33 Home Medications: Home Medications Atorvastatin* [Lipitor*] 80 mg PO DAILY 02/14/19 [History Confirmed 02/14/19] Lisinopril TAB* [Prinivil TAB 5 MG*] 2.5 mg PO DAILY 02/14/19 [History Confirmed 02/14/19] PMH/Surg Hx/FS Hx/Imm Hx Previously Healthy: No Endocrine/Hematology History: Denies: Hx Anticoagulant Therapy, Hx Diabetes, Hx Thyroid Disease Cardiovascular History: Reports: Hx Angina, Hx Coronary Artery Disease, Hx Hypertension - TREATED, Hx Myocardial Infarction, Other Cardiovascular Problems/ Disorders Denies: Hx Hypercholesterolemia, Hx Pacemaker/ICD, Hx Valvular Heart Disease Respiratory History: Reports: Hx Asthma - NO INHALER NEEDED, Other Respiratory Problems/Disorders - SMOKER Denies: Hx Chronic Obstructive Pulmonary Disease (COPD) GI History: Denies: Hx Ulcer History: Denies: Hx Dialysis, Hx Renal Disease Musculoskeletal History: Reports: Other Musculoskeletal History - 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 [place] [facility] [place] [place], [place]. 11/13/[place] [facility] [place] [facility] [place] Anesthesia Reactions: No - Immunization History Date of Tetanus Vaccine: PT STATES UNSURE Date of Influenza Vaccine: NONE Infectious Disease History: No Infectious Disease History: Denies: Hx Hepatitis, Hx Human Immunodeficiency Virus (HIV), Traveled Outside the [place] in Last 30 Days - Family History Known Family History: Positive: Cardiac Disease - Brother (52) and father had an ND. - Social History Alcohol Use: Weekly Alcohol Amount: 3x wk Hx Substance Use: No Substance Use Type: Reports: None Hx Tobacco Use: Yes Smoking Status (MU): Heavy Every Day Tobacco Smoker Type: Cigarettes Amount Used/How Often: LESS THAN 1 PPD Length of Time of Smoking/Using Tobacco: 44 YEARS Have You Smoked in the Last Year: Yes Review of Systems Positive: Chest Pain Positive: Shortness Of Breath Positive: Myalgia - neck pain, Other - hands turned purple Neurological: Other - dizziness, lightheadedness All Other Systems Reviewed And Are Negative: Yes Physical Exam - Summary Physical Exam Summary: Appearance: The patient is obese, anxious, and in no acute pain. Skin: The skin is warm, diaphoretic, and skin color reflects adequate perfusion. HEENT: The head is normocephalic and atraumatic. The pupils are equal and reactive. The conjunctivae are clear and without drainage. Nares are patent and without drainage. Mouth reveals moist mucous membranes and the throat is without erythema and exudate. The external ears are intact. The ear canals are patent and without drainage. The tympanic membranes are intact. Neck: The neck is supple with full range of motion and non-tender. There are no carotid bruits. There is no neck vein distension. There is no JVD. Respiratory: Chest is non-tender. Lungs are clear to auscultation and breath sounds are symmetrical and equal. Cardiovascular: Heart is tachycardic. There is no murmur or rub auscultated. There is no peripheral edema and pulses are symmetrical and equal. Radial pulses are tachycardic bilaterally. Abdomen: The abdomen is soft and non-tender. There are normal bowel sounds heard in all four quadrants and there is no organomegaly palpated. Musculoskeletal: There is no back tenderness noted. Extremities are non-tender with full range of motion. There is good capillary refill. There is no peripheral edema or calf tenderness elicited. Neurological: Patient is alert and oriented to person, place and time. The patient has symmetrical motor strength in all four extremities. Cranial nerves are grossly intact. Deep tendon reflexes are symmetrical and equal in all four extremities. Psychiatric: The patient is anxious. Triage Information Reviewed: Yes Vital Signs On Initial Exam: Initial Vitals Temp Pulse Resp 97.8 F 211 24 02/14/19 18:00 02/14/19 18:00 02/14/19 18:00 Vital Signs Reviewed: Yes Diagnostics - Vital Signs Vital Signs Temp Pulse Resp 02/14/19 18:00 97.8 F 211 24 - Laboratory Result Diagrams: 02/14/19 18:11 02/14/19 18:11 Lab Statement: Any lab studies that have been ordered have been reviewed, and results considered in the medical decision making process. - EKG 1809 Cardiac Rate: Other Rate EKG Comparison: Other Summary of EKG Findings: EKG at 1809 shows wide QRS complex tachycardia with LBBB. 1826 Cardiac Rate: Other Rate - atrial fibrillation 106bpm EKG Rhythm: Atrial Fibrillation ST Segment: Normal Ectopy: None Summary of EKG Findings: EKG at 1826 shows atrial fibrillation with controlled ventricular response. Course/Dx - Course Course Of Treatment: Ms. Greer presented in a wide complex tachycardia feeling chest pain and shortness of breath. She was immediately brought back to room 14 and placed on the monitor. While IV was being initiated she would occasionally slowed down enough to see that she was in an irregular heart rhythm. And she grossly looked like a left bundle branch block. I brought up an old EKG which showed no left bundle branch block or a borderline block and it was my impression that she would had a rate related block with atrial fibrillation. She was given Cardizem IV and this slowed her down and now her complex. Labs were obtained and she was given fluids and started on a Cardizem drip. Shortly after giving the Cardizem Dr. Valencia was contacted and he came to the department to evaluate her. She will be admitted to the hospitalist service for consideration of cardioversion. - Diagnoses Provider Diagnoses: Atrial fibrillation with RVR - Critical Care Time Critical Care Time: 30-74 min Discharge - Sign-Out/Discharge Documenting (check all that apply): Patient Departure - Discharge Plan Condition: Fair Disposition: ADMITTED TO [facility] - Billing Disposition and Condition Condition: FAIR Disposition: Admitted to [facility] - Attestation Statements Document Initiated by Scribe: Yes Documenting Scribe: Sofie Acosta Provider For Whom Connieibe is Documenting (Include Credential): Caden Kenyon MD. Scribe Attestation: Sofie Marcial, scribed for Caden Kenyon MD. on 02/14/19 at 2115. Scribe Documentation Reviewed: Yes Provider Attestation: The documentation as recorded by the connieibe, Sofie Acosta accurately reflects the service I personally performed and the decisions made by me, Caden Kenyon MD. Status of Scribe Document: Viewed Consult Consult: [address] Valencia of cardiology who will be coming to see the patient. 183 Dr. Valencia at bedside, recommends speaking to hospitalist for admission. 1846 - I spoke with Dr. Pacheco who will be accepting the pt for [place] [facility] [place]
[2019-02-14] MEDS ORDERED: Diltiazem IV VIAL* 125 MG in NS 0.9% 100 ML* 100 ML IV ONE (18:35)
[2019-02-14 18:36] LABS: ABS Lymphocytes 1.1 10^3/ul (1.0-4.8); ABS Monocytes 0.1 10^3/ul (0-0.8); ABS Neutrophils 6.8 10^3/ul (1.5-7.7); Eosinophil % 0.1 %; Hematocrit 53 % (35-47); Hemoglobin 17.9 g/dL (12.0-16.0); Mean Corpuscular HGB Conc 34 g/dL (31-36); Mean Corpuscular Hemoglobin 32 pg (27-31); Mean Corpuscular Volume 93 fL (80-97); Mean Platelet Volume 10.3 fL (7.4-10.4); Nucleated Red Blood Cells % 0.2; Platelet Count 160 10^3/uL (150-450); Red Blood Count 5.66 10^6 /uL (3.70-4.87); Red Cell Distribution Width 14 % (10.5-15)
[2019-02-14] MEDS: NS 0.9% 1000 ML** 2,000 ML IV ONE (18:41)
[2019-02-14 18:47] LABS: Albumin 4.3 g/dL (3.2-5.2); Albumin/Globulin Ratio 1.3 (1-3); Calcium 9.4 mg/dL (8.6-10.3); EGFR African American 88.8 (>60); EGFR Non-African American 73.4 (>60); Globulin 3.4 g/dL (2-4); Potassium 3.7 mmol/L (3.5-5.0); Total Bilirubin 0.5 mg/dL (0.2-1.0); Total Protein 7.7 g/dL (6.4-8.9)
[2019-02-14 18:48] LABS: Troponin I 0.01 ng/mL (<0.04)
[2019-02-14] MEDS ORDERED: Ondansetron INJ* 2 MG/ML VIAL IV PRN (19:52)
[2019-02-14] MEDS ORDERED: Acetaminophen TAB* 325 MG PO PRN (19:52)
[2019-02-14] MEDS ORDERED: Heparin DRIP 25,000 UNITS(*) 25,000 UNITS/500 ML BAG IV SCH (20:00)
[2019-02-14] MEDS ORDERED: Heparin VIAL(*) 5000 UNITS/ML VIAL (FIVE THOUSAND) IV SCH (20:00)
[2019-02-14] MEDS ORDERED: Diltiazem IV VIAL* 125 MG in NS 0.9% 100 ML* 100 ML IV SCH (20:00)
[2019-02-14] MEDS ORDERED: Nitroglycerin TAB 0.4 MG* 0.4 MG TAB SL PRN (20:03)
[2019-02-14] MEDS ORDERED: Senna TAB PO PRN (20:03)
[2019-02-14] MEDS ORDERED: Albuterol HFA INHALER* 8 gm MDI INH PRN (20:03)
[2019-02-14] MEDS ORDERED: Benzonatate CAP* 100 MG PO PRN (20:03)
[2019-02-14 20:21] LABS: HDL Cholesterol 60.4 mg/dL
[2019-02-14 20:38] LABS: TSH (Thyroid Stimulating Horm) 1.34 mcIU/mL (0.34-5.60)
[2019-02-14] MEDS: Metoprolol Succinate XL TAB* 25 MG PO SCH (21:24)
[2019-02-14] MEDS: oxyCODONE TAB* 5 MG TAB PO PRN (21:24)
[2019-02-14 21:58] LABS: Troponin I 0.04 ng/mL (<0.04)
[2019-02-14] MEDS ORDERED: NS 0.9% 1000 ML** 1,000 ML IV SCH (22:00)
--- NOTE | 2019-02-14 22:00 | CONS ---
CC: Dr. Sanket Rapp * CONSULTATION REPORT: DATE OF CONSULT: 02/14/19 REFERRING PHYSICIAN: Dr. Caden Kenyon. REASON FOR CONSULT: Urgent consultation kindly requested [place]. Kenyon [place] [facility] regarding wide complex tachycardia concerning for ventricular tachycardia. HISTORY OF PRESENT ILLNESS: Ms. Greer is accompanied by her daughter and her niece in the emergency room. She has apparently been having palpitations for the past week, off and on. Today, she came to the emergency room, and was found to have a wide complex tachycardia up to 200 beats per minute, with which she was symptomatic as she was having chest pain and lightheadedness. She received Cardizem IV by Dr. Kenyon with good effect and she has reverted to clearly noted AF/AFl with now narrow complex QRS i.e., her prior with wide complex tachycardia appeared to be due to AFib with aberrancy rather than true ventricular tachycardia. The patient states her chest pain is much improved with her heart rate control. PAST CARDIAC HISTORY: Includes coronary artery disease. She has had cardiac catheterization on 07/11/16, which showed normal left main, mild mid LAD lesion of 35%, left circumflex with 45% to 50% lesion, right coronary artery with 45% to 50% lesion, and an acute marginal branch with up to 70% lesion. She also has a history of COPD on chronic 2L NC O2, tobacco abuse, chronic pain, HLD and hypertension. HOME MEDICATIONS: 1. Oxycodone 10 mg p.o. q.6 hours p.r.n. 2. Aspirin 81 mg once a day. 3. Nitroglycerin sublingual p.r.n. 4. Toprol-XL 25 mg once a day. 5. Albuterol. 6. Lipitor 80 mg once a day. 7. Lisinopril 2.5 mg once a day. ALLERGIES: Per the patient are negative. SOCIAL HISTORY: She smokes cigarettes, drinks 1-3 beers/week and drinks coffee. She lives with her daughter. FAMILY HISTORY/REVIEW OF SYSTEMS: Unable to obtain other than as above as the patient is not feeling well during this urgent ER evaluationt due to her tenuous medical status during this urgent emergency room evaluation. PHYSICAL EXAM: Height 5 feet 4 inches, pulses 110, temperature 97.8 degrees Fahrenheit, blood pressure 140/100. On general exam, she is pleasant, anxious, overweight woman, who appears to have chronic bronchitis and in no acute distress. HEENT: Shows cranium is normocephalic and atraumatic. She has dry mucosal membranes. Neck veins are not distended. There are no carotid bruits visible. Skin warm and perfused. Affect appropriate. She appears oriented. No significant kyphoscoliosis on back exam. Lungs revealed increased expiratory phase. No wheezes. Cardiac Exam: S1, S2. Irregular rate. Soft holosystolic murmur heard without radiation. There is no rub, no gallop. PMI is nondisplaced. Abdomen: Soft, obese, appears benign. Extremities with trivial peripheral edema. Pulses appear intact. DIAGNOSTIC STUDIES/LAB DATA: A 12-lead EKG reviewed from earlier today shows wide complex tachycardia at > 200 BPM. Followup EKG done this evening (post Andreazem) 02/14/19 at 18:26 shows atrial flutter/fibrillation with now narrow complex tachycardia. Labs: Pending. IMPRESSION: Ms. Greer is a 58-year-old lady with a history of hypertension and moderate non-obstructive coronary artery disease as reviewed above, now with a week of palpitations, found to have rapid atrial aflutter/fibrillation with aberrancy, no true ventricular tachycardia. She will be admitted to the hospital for rate control. RECOMMENDATIONS: 1. I agree with Bon eisenberg with NOAC. I have offered them transesophageal echocardiogram guided cardioversion in the morning which after deliberation, the patient and her family have accepted. 2. Await serum electrolytes, TSH, CBC. 3. Rule out IA protocol. 4. Continue aspirin, beta raghu and statin usp given her history of CAD as above. 5. 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 Rapp post discharge. 6. The patient has been counseled for cigarette smoking cessation. Other management as per the emergency medicine and hospitalist medicine service and I have discussed the case with Dr. Caden Kenyon of the Emergency Medicine. Thank you for this cardiology consultation opportunity. Will follow with you. Please don't hesitate to contact me if you have any questions or concerns regarding Ms. Greer's cardiac consultative care. [id number]/[facility] #: [id number] MTDD
[2019-02-14 22:10] LABS: BUN/Creatinine Ratio 8.9 (8-20); Blood Urea Nitrogen 7 mg/dL (6-24); Calcium 8.7 mg/dL (8.6-10.3); Chloride 109 mmol/L (101-111); EGFR African American 90.1 (>60); EGFR Non-African American 74.5 (>60); Glucose 194 mg/dL (70-100); Potassium 3.7 mmol/L (3.5-5.0); Sodium 139 mmol/L (135-145)
[2019-02-14 22:14] LABS: Anion Gap 17 mmol/L (2-11); CO2 Carbon Dioxide 13 mmol/L (22-32)
--- NOTE | 2019-02-14 23:49 | HP ---
CC: JOSE Chaidez; Dr. Sanket Rapp; Dr. Trey Valencia * ADMISSION HISTORY AND PHYSICAL: DATE OF ADMISSION: 02/14/19 PRIMARY CARE DOCTOR: JOSE Chaidez ATTENDING PHYSICIAN WHILE IN THE HOSPITAL: Dr. Todd Tovar.* (DICTATED BY JOSE ALVA) OUTPATIENT OPERATIONS MANAGER/COORDINATOR: Dr. Sanket Rapp. CONSULTING OPERATIONS MANAGER/COORDINATOR: Dr. Trey Valencia. CHIEF COMPLAINT: Chest pain, shortness of breath x2 hours. HISTORY OF PRESENT ILLNESS: Ms. Greer is a 58-year-old female with past medical history significant for coronary artery disease, status post ME with no stent placement, COPD with intermittent use of 2 L, hypertension, hyperlipidemia , chronic pain with intermittent left bundle-branch block, who presents to the emergency department after approximately 1-1/2 weeks. She has been having episodes of palpitations particularly worse when she was lying down for bed. She was able to resolve with deep breathing exercises. The patient states that last night she was feeling in her normal state of health except for these episodes, but stayed over at her daughter's house due to need to be in a doctor's appointment early and did not bring her medications. The patient therefore did not take any of her current medications including her metoprolol. The patient went to the doctor's appointment in the morning, had a cortisone injection in her back. The patient at that point was feeling in her normal state of health except for being very stressed. The patient then took her great granddaughter to Urgent Care. In Urgent Care, she began having shortness of breath and chest pain and felt like she was going to pass out. The patient then came to the hospital. The patient at the time had chest pain radiating into her neck. The patient was found to be tachycardic above 200. The patient was given diltiazem push and started on diltiazem drip with her heart rate coming down to the high 100s. The patient never had low blood pressure, but her laboratory work revealed low carbon dioxide and elevated lactic acid. The patient has no systemic illnesses. The patient has no dysuria, abdominal pain, or diarrhea. The patient did have 1 episode on Monday02/11/19, where she had to use her inhaler and supplemental oxygen, but she felt prior to stay back to her baseline from a respiratory status. The patient had a large lump in her leg, which was hypothesized to be fluid by her PCP, but this was unclear what the underlying cause was. The family was concerned about blood clot but the patient never had a history of a blood clot. The patient has significant shortness of breath with exertion, but this has been stable. The patient still able to engage in significant exercise without getting short of breath. Due to concern for severe tachycardia with cardiogenic shock, we were asked to evaluate the patient for admission to the hospital. PAST MEDICAL HISTORY: CAD, status post NSTEMI without PCI; COPD and intermittent need for 2 L of oxygen; hypertension; thrombocytopenia; hyperlipidemia; chronic pain; intermittent left bundle-branch block; history of seizure disorder, most recent seizure 1976. PAST SURGICAL HISTORY: Two C-sections, multiple arm surgeries, tonsillectomy. MEDICATIONS: 1. Oxycodone 10 mg p.o. q.6 hours as needed. 2. Aspirin 81 mg p.o. daily. 3. Nitroglycerin 0.4 mg sublingual q.5 minutes as needed. 4. Metoprolol succinate 25 mg p.o. daily. 5. Sennoside 1 tab p.o. daily as needed. 6. Benzonatate 100 mg p.o. t.i.d. as needed. 7. Albuterol 1 to 2 puffs inhalation q.4 hours as needed. 8. Nitroglycerin patch 1 patch transdermal daily. 9. Lipitor 80 mg p.o. daily. 10. Lisinopril 2.5 mg p.o. daily. ALLERGIES: No known drug allergies. FAMILY HISTORY: The patient's mother of ruptured appendicitis. The patient's father of heart disease. The patient had a sister who of congenital heart disease, and a sister who recently of a ruptured abdominal aortic aneurysm. SOCIAL HISTORY: The patient is a current smoker, but is cutting back, she smokes less than a pack a day. The patient drinks 4 to 5 alcoholic beverages a week. The patient denies illicit drug use. 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 The patient is twice and has 1 child. The patient's surrogate decision maker would be her daughter Veronica Dangelo. REVIEW OF SYSTEMS: A 14-point review of systems were reviewed and negative except as noted above in the HPI. PHYSICAL EXAMINATION GENERAL: The patient is a 58-year-old male who appears older than stated age, sitting in bed with mildly increased work of breathing. VITAL SIGNS: At the time of evaluation, temperature 97.8, pulse rate 100, respiratory rate 22, oxygen saturation 95% on 2 L, blood pressure 136/82. NECK: Supple, nontender. No lymphadenopathy. No carotid bruit auscultated. No JVD. RESPIRATORY: Diminished throughout. No wheezes, rales, or rhonchi. Good air exchange bilaterally. CARDIAC: Tachycardic, irregularly irregular rhythm. No clicks, murmurs, gallops, or rubs. Pulses 2+ in the dorsalis pedis, posterior tibialis, and radial areas. ABDOMEN: Soft, nontender, nondistended. Bowel sounds present and normoactive in all 4 quadrants. No hepatosplenomegaly. No abdominal bruits auscultated. No hepatojugular reflux. GENITOURINARY: No suprapubic or CVA tenderness. SKIN: Clean, dry, and intact. No rash. NEUROLOGIC: Cranial nerves II through XII intact. No focal deficits. Alert and oriented x3. PSYCHIATRIC: Pleasant and cooperative. DIAGNOSTIC STUDIES/LAB DATA: White blood cell count 8.0, hemoglobin 17.9, platelet count 160. INR 1.0. Sodium 132, potassium 3.7, chloride 102, carbon dioxide 14, anion gap 16, BUN 8, creatinine 0.8, glucose 250, lactic acid 4.8, calcium 9.4, magnesium 2.0. Bilirubin 0.5, AST 76, ALT 64, alkaline phosphatase 134. Troponin I 0.01. Protein 7.7, albumin 4.3, globulin 3.4. Studies: Chest x-ray read as no focal consolidation, hyperinflation. No other significant cardiopulmonary abnormality to this reader's interpretation. EKG initially showed wide complex tachycardia, heart rate 217, QTc 480, left bundle- branch block pattern. Repeat EKG showed atrial fibrillation/flutter, rate 106, QTc 436, narrow complex, no ST segment elevation or depression, normal axis. Repeat EKG shows sinus rhythm versus atrial flutter with 2:1 block , rate 99, QTc 444. No other significant changes from previous exam. ASSESSMENT AND PLAN/IMPRESSION: Ms. Greer is a 58-year-old female with past medical history significant for coronary artery disease, status post myocardial infarction, chronic obstructive pulmonary disease, hypertension, and intermittent left bundle-branch block, who presents to the emergency department with new onset atrial fibrillation with rate greater than 200 with wide complex tachycardic consistent with her previous history of left bundle-branch block. The patient will be admitted to the hospital for close monitoring and possible ELIGIO cardioversion in the morning. 1. Atrial fibrillation with rapid ventricular rate, cardiogenic shock. The patient in the emergency department had heart rate greater than 200 and was found to be significantly acidotic with lactic acid greater than 4.8, elevated LFTs all consistent with hypoperfusion related to her significantly elevated heart rate. The patient had a repeat BMP and lactic acid. The patient's heart rate is currently well controlled on a Cardizem drip at 5 mL an hour. The patient will be admitted to ICU in case the patient needs emergent cardioversion overnight and for easier titration of her diltiazem drip. The patient will also be started on heparin protocol for anticoagulation, should be transitioned to oral anticoagulant when appropriate likely tomorrow. The patient will be given a dose of metoprolol succinate to avoid any rebound tachycardia at this time. The patient will continue on her other home meds. The patient's nitroglycerin patch will be held at this time, it may be resumed. The patient will have nitroglycerin as needed for recurrent chest pain. The patient was seen in consultation by Dr. Valencia of Cardiology. Per his recommendation, aspirin and Lipitor will be continued at this time. The patient will have troponins trended, but her initial troponin was 0.01. The patient will have TSH and urinalysis checked. The patient has no provoking factors for pulmonary embolism at this time. The patient's chest pain was able to be resolved with controlling her heart rate. However, given the patient's history of swelling in her leg, which has not resolved, we will add on a D- dimer assessed to see if the patient may have had this episode provoked by a pulmonary embolism. 2. Coronary artery disease, status post myocardial infarction. The patient will have troponins trended as above. The patient had chest pain without ischemic changes on EKG. The patient may continue on her aspirin and her Lipitor. The patient was taken off her Plavix and given her anticoagulation, will not be restarted on this at this time. 3. Chronic obstructive pulmonary disease. The patient is not in exacerbation at this time. The patient is saturating well on 2 L of oxygen which she uses intermittently at home. The patient will have her home inhaler as needed, but this will have to be sparingly to avoid exacerbating her atrial fibrillation. 4. Thrombocytopenia. The patient has a chronic history of thrombocytopenia, but this is currently resolved. We will monitor closely while on heparin drip. 5. Hyperlipidemia. Continue statin. 6. Transaminitis. The patient's transaminitis is likely due to hypoperfusion related to her heart rate. We will recheck this in the morning. 7. FEN: The patient will have heart healthy diet without caffeine and n.p.o. after midnight. The patient had 2 L of fluid while in the emergency department. Due to diastolic dysfunction on previous echo, the patient will not have fluids additionally unless is needed for blood pressure support. 8. DVT prophylaxis: The patient will be on a heparin drip. TIME SPENT: Approximately 60 minutes was spent on admission of this patient, 30 of which was spent [id number] with the patient obtaining history and physical and discussing treatment plan. This plan was discussed with my attending Dr. Todd Tovar, and he is in agreement. JOSE ALVA [id number]/[facility] #: [id number] RAYMUNDO
[2019-02-15 00:46] LABS: Urine Appearance Clear; Urine Bacteria 1+ (Absent); Urine Bilirubin Negative (Negative); Urine Blood 1+ (Negative); Urine Color Straw; Urine Glucose 1+(50 mg/dL) (Negative); Urine Ketones Negative (Negative); Urine Nitrite Negative (Negative); Urine Protein Negative (Negative); Urine Red Blood Cell Absent (Absent); Urine Specific Gravity 1.005 (1.010-1.030); Urine Squamous Epithelial Cell Present (Absent); Urine Urobilinogen Negative (Negative); Urine White Blood Cell Absent (Absent)
[2019-02-15 02:25] LABS: Troponin I 0.05 ng/mL (<0.04)
[2019-02-15] MEDS: oxyCODONE TAB* 5 MG TAB PO PRN ×4 (03:06→21:26)
[2019-02-15 05:41] LABS: Hematocrit 43 % (35-47); Hemoglobin 14.4 g/dL (12.0-16.0); Mean Corpuscular HGB Conc 34 g/dL (31-36); Mean Corpuscular Hemoglobin 31 pg (27-31); Mean Corpuscular Volume 93 fL (80-97); Red Cell Distribution Width 14 % (10.5-15)
[2019-02-15 05:49] LABS: Albumin 3.3 g/dL (3.2-5.2); Albumin/Globulin Ratio 1.2 (1-3); BUN/Creatinine Ratio 12.9 (8-20); Calcium 8.5 mg/dL (8.6-10.3); EGFR African American 82.8 (>60); EGFR Non-African American 68.5 (>60); Globulin 2.7 g/dL (2-4); Magnesium 1.9 mg/dL (1.9-2.7); Potassium 4.4 mmol/L (3.5-5.0); Total Bilirubin 0.5 mg/dL (0.2-1.0)
[2019-02-15] MEDS ORDERED: Nicotine Patch Removal NOTE FOLLOW UP SCH (06:00)
[2019-02-15 06:39] LABS: ABS Lymphocytes 1.2 10^3/ul (1.0-4.8); ABS Monocytes 0.3 10^3/ul (0-0.8); ABS Neutrophils 6.5 10^3/ul (1.5-7.7); Eosinophil % 0.1 %; Lymphocyte % 14.6 %; Mean Platelet Volume 10.5 fL (7.4-10.4); Platelet Count 77 10^3/uL (150-450)
[2019-02-15] MEDS: Aspirin 81 mg CHEW TAB* 81 MG TAB.CHEW PO SCH (07:54)
[2019-02-15] MEDS: Atorvastatin* 80 MG TAB PO SCH (07:54)
[2019-02-15] MEDS: Metoprolol Succinate XL TAB* 25 MG PO SCH (07:54)
[2019-02-15] MEDS: Lisinopril TAB* 5 MG PO SCH (07:55)
[2019-02-15] MEDS: Nicotine PATCH 14 MG/24 HR* PATCH TRANSDERM SCH ×2 (07:55)
--- NOTE | 2019-02-15 09:50 | PN ---
Date of Service: 02/15/19 - HD 2 Critical Care Services: 58 yo F with PMH including Angina, CAD, HTN, prior MO, ASthma, tobacco abuse, childhood seizures. she presented to the ED on 02/14 with shortness of breath x 2 hours starting after receiving a steriod injection in her back. Also reports lightheadedness and dizziness. On evaluation found to have a HR 211. Physical exam notable for diaphoresis and rapid heart rate. EKG with wide complex QRS and LBBB. She converted to Afib with RVR at a rate of 106 after cardizem. Cardiology consulted. Admitted to hospitalist service in the ICU. 02/14: Spontaneously converted to NSR overnight. Vital Signs: Temp Pulse Resp BP SpO2 FiO2 97 F 68 20 109/75 97 02/15/19 08:00 02/15/19 08:30 02/15/19 08:30 02/15/19 08:30 02/15/19 08:30 Physical Exam: Gen: sitting up in bed, eating breakfast HEENT: intact. NC in place Lungs: nonlabored Cardiac: RRR Abdomen: soft, nondistended Extremities: moving equally Neuro: alert and oriented Fluid Balance (Past 24 Hours): I= O= Net Intake & Output 02/13/19 02/14/19 02/15/19 02/16/19 06:59 06:59 06:59 06:59 Intake Total 1076 0 Output Total 900 0 Balance 176 0 Weight 211 lb 3.245 oz Intake: IV Fluids 731 NS (0.9%) 731 Medicated IV 70 diltiazem 70 Heparin 155 Oral 120 0 Output: Urine 900 0 Labs: Laboratory Results - last 24 hr 02/14/19 02/14/19 02/14/19 18:11 18:11 18:11 WBC 8.0 RBC 5.66 H Hgb 17.9 H Hct 53 H MCV 93 MCH 32 H MCHC 34 RDW 14 Plt Count 160 MPV 10.3 Neut % (Auto) 84.5 Lymph % (Auto) 14.0 [place] % (Auto) 0.9 Eos % (Auto) 0.1 Baso % (Auto) 0.5 Absolute Neuts (auto) 6.8 Absolute Lymphs (auto) 1.1 Absolute Monos (auto) 0.1 Absolute Eos (auto) 0.0 Absolute Basos (auto) 0.0 Absolute Nucleated RBC 0.0 Nucleated RBC % 0.2 INR (Anticoag Therapy) APTT D-Dimer, Quantitative Sodium 132 L Potassium 3.7 Chloride 102 Carbon Dioxide 14 L* Anion Gap 16 H BUN 8 Creatinine 0.80 Est GFR ( Amer) 88.8 Est GFR (Non-Af Amer) 73.4 BUN/Creatinine Ratio 10.0 Glucose 250 H Hemoglobin A1c Lactic Acid 4.8 H* Calcium 9.4 Magnesium 2.0 Total Bilirubin 0.50 AST 76 H ALT 64 H Alkaline Phosphatase 134 H Troponin I 0.01 Total Protein 7.7 Albumin 4.3 Globulin 3.4 Albumin/Globulin Ratio 1.3 Triglycerides 71 Cholesterol 190 LDL Cholesterol 115 HDL Cholesterol 60.4 TSH 1.34 Urine Color Urine Appearance Urine pH Ur Specific [place] Urine Protein Urine Ketones Urine Blood Urine Nitrate Urine Bilirubin Urine Urobilinogen Ur Leukocyte Esterase Urine WBC (Auto) Urine RBC (Auto) Ur Squamous Epith Cells Urine Bacteria Urine Glucose 02/14/19 02/14/19 02/14/19 18:11 18:11 20:40 WBC RBC Hgb Hct MCV MCH MCHC RDW Plt Count MPV Neut % (Auto) Lymph % (Auto) [place] % (Auto) Eos % (Auto) Baso % (Auto) Absolute Neuts (auto) Absolute Lymphs (auto) Absolute Monos (auto) Absolute Eos (auto) Absolute Basos (auto) Absolute Nucleated RBC Nucleated RBC % INR (Anticoag Therapy) 1.00 APTT 34.2 D-Dimer, Quantitative < 200 Sodium Potassium Chloride Carbon Dioxide Anion Gap BUN Creatinine Est GFR ( Amer) Est GFR (Non-Af Amer) BUN/Creatinine Ratio Glucose Hemoglobin A1c 5.5 Lactic Acid Calcium Magnesium Total Bilirubin AST ALT Alkaline Phosphatase Troponin I Total Protein Albumin Globulin Albumin/Globulin Ratio Triglycerides Cholesterol LDL Cholesterol HDL Cholesterol TSH Urine Color Urine Appearance Urine pH Ur Specific [place] Urine Protein Urine Ketones Urine Blood Urine Nitrate Urine Bilirubin Urine Urobilinogen Ur Leukocyte Esterase Urine WBC (Auto) Urine RBC (Auto) Ur Squamous Epith Cells Urine Bacteria Urine Glucose 02/14/19 02/14/19 02/15/19 21:26 21:26 00:13 WBC RBC Hgb Hct MCV MCH MCHC RDW Plt Count MPV Neut % (Auto) Lymph % (Auto) [place] % (Auto) Eos % (Auto) Baso % (Auto) Absolute Neuts (auto) Absolute Lymphs (auto) Absolute Monos (auto) Absolute Eos (auto) Absolute Basos (auto) Absolute Nucleated RBC Nucleated RBC % INR (Anticoag Therapy) APTT D-Dimer, Quantitative Sodium 139 Potassium 3.7 Chloride 109 Carbon Dioxide 13 L* Anion Gap 17 H BUN 7 Creatinine 0.79 Est GFR ( Amer) 90.1 Est GFR (Non-Af Amer) 74.5 BUN/Creatinine Ratio 8.9 Glucose 194 H Hemoglobin A1c Lactic Acid 5.5 H* Calcium 8.7 Magnesium Total Bilirubin AST ALT Alkaline Phosphatase Troponin I 0.04 H* Total Protein Albumin Globulin Albumin/Globulin Ratio Triglycerides Cholesterol LDL Cholesterol HDL Cholesterol TSH Urine Color Straw Urine Appearance Clear Urine pH 5.0 Ur Specific [place] 1.005 L Urine Protein Negative Urine Ketones Negative Urine Blood 1+ A Urine Nitrate Negative Urine Bilirubin Negative Urine Urobilinogen Negative Ur Leukocyte Esterase Negative Urine WBC (Auto) Absent Urine RBC (Auto) Absent Ur Squamous Epith Cells Present A Urine Bacteria 1+ A Urine Glucose 1+(50 mg/dl) A 02/15/19 02/15/19 02/15/19 01:55 01:55 01:55 WBC RBC Hgb Hct MCV MCH MCHC RDW Plt Count MPV Neut % (Auto) Lymph % (Auto) [place] % (Auto) Eos % (Auto) Baso % (Auto) Absolute Neuts (auto) Absolute Lymphs (auto) Absolute Monos (auto) Absolute Eos (auto) Absolute Basos (auto) Absolute Nucleated RBC Nucleated RBC % INR (Anticoag Therapy) APTT 125.7 H* D-Dimer, Quantitative Sodium Potassium Chloride Carbon Dioxide Anion Gap BUN Creatinine Est GFR ( Amer) Est GFR (Non-Af Amer) BUN/Creatinine Ratio Glucose Hemoglobin A1c Lactic Acid 2.4 H* Calcium Magnesium Total Bilirubin AST ALT Alkaline Phosphatase Troponin I 0.05 H* Total Protein Albumin Globulin Albumin/Globulin Ratio Triglycerides Cholesterol LDL Cholesterol HDL Cholesterol TSH Urine Color Urine Appearance Urine pH Ur Specific [place] Urine Protein Urine Ketones Urine Blood Urine Nitrate Urine Bilirubin Urine Urobilinogen Ur Leukocyte Esterase Urine WBC (Auto) Urine RBC (Auto) Ur Squamous Epith Cells Urine Bacteria Urine Glucose 02/15/19 02/15/19 02/15/19 05:15 05:15 08:47 WBC 8.0 RBC 4.60 Hgb 14.4 Hct 43 MCV 93 MCH 31 MCHC 34 RDW 14 Plt Count 77 L D MPV 10.5 H Neut % (Auto) 80.9 Lymph % (Auto) 14.6 [place] % (Auto) 3.9 Eos % (Auto) 0.1 Baso % (Auto) 0.5 Absolute Neuts (auto) 6.5 Absolute Lymphs (auto) 1.2 Absolute Monos (auto) 0.3 Absolute Eos (auto) 0.0 Absolute Basos (auto) 0.0 Absolute Nucleated RBC 0.0 Nucleated RBC % 0.0 INR (Anticoag Therapy) APTT 61.5 H D-Dimer, Quantitative Sodium 136 Potassium 4.4 Chloride 110 Carbon Dioxide 21 L Anion Gap 5 BUN 11 Creatinine 0.85 Est GFR ( Amer) 82.8 Est GFR (Non-Af Amer) 68.5 BUN/Creatinine Ratio 12.9 Glucose 160 H Hemoglobin A1c Lactic Acid Calcium 8.5 L Magnesium 1.9 Total Bilirubin 0.50 AST 36 ALT 47 Alkaline Phosphatase 95 Troponin I Total Protein 6.0 L Albumin 3.3 Globulin 2.7 Albumin/Globulin Ratio 1.2 Triglycerides Cholesterol LDL Cholesterol HDL Cholesterol TSH Urine Color Urine Appearance Urine pH Ur Specific [place] Urine Protein Urine Ketones Urine Blood Urine Nitrate Urine Bilirubin Urine Urobilinogen Ur Leukocyte Esterase Urine WBC (Auto) Urine RBC (Auto) Ur Squamous Epith Cells Urine Bacteria Urine Glucose Studies: 02/14 CXR - low lung volumes. small right basilar infiltrate suggestive of atelectasis. Nutrition: heart healthy Impression: 58 yo F with CAD and prior MO presented in a wide complex tachycardia, slowing to Afib with RVR after cardizem. Spontaneously converted overnight. Plan: Cardiovascular: (1) Afib with RVR; (2) CAD; (3) hx of prior MO -- HR 63-213 -- SBP 72-176 -- Telemetry -- Troponin 0.05 from 0.04 -- ASA -- Atorvastatin -- Lisinopril, Metoprolol -- PRN Nitro -- Cardiology following Home meds: Atorvastatin, Lisinopril, Nitro, Metoprolol , ASA Pulmonary: (1) Dyspnea; (2) Tobacco abuse -- RR 11-27 -- sats 94-98 on 3L NC -- CXR: atelectasis -- PRN Albuterol -- PRN Tessalon -- Nicoderm patch Home meds: Tessalon, Albuterol Gastrointestinal: (1) Shock liver, resolved -- LFTs normalized with am labs -- diet: cardiac -- bowel regimen: Senna -- ulcer prophylaxis: not indicated at this time Home meds: Senna Endocrine: (1) Hyperglycemia -- monitor BGs, start SSI if > 180 -- hgb A1c 5.5 Home meds: None Renal: (1) Mild hypocalcemia -- UOP: 75 ml/hr -- Cr 0.85 from 0.79 -- Lytes Na 136 from 139 K 4.4 Ca 8.5, replace Mag 1.9 -- IVF: HL Home meds: None Infectious disease: No acute issues -- Tmax 99.0 -- WBC 8.0 from 8.0 -- Micro 5/2 MRSA screen negative UA negative -- ABX None Home meds: None Neurologic: (1) Chronic pain syndrome -- PRN Tylenol -- PRN Oxycodone Home meds: Oxycodone Hematological: (1) Thrombocytopenia -- Hgb 14.4 from 17.9, dilutional -- Plt 77 from 160, follow trend -- Coags PTT 61.5 -- DVT prophylaxis: heparin gtt -- ASA Home meds: ASA Metabolic: (1) Lactic acidosis -- Lactic acid 2.4 from 5.5 from 4.8 Home meds: None Deep vein thrombosis prophylaxis: heparin gtt Dietary: Not indicated at this time Condition: stable Prognosis: good Code status: full Disposition: transfer to floor Family updated at bedside regarding interval events and plan of care Cumulative time spent in the care of this patient (excluding any procedure time) : at least 30 minutes. Patient care included clinical interview (with patient and/or family), bedside exam of the patient, review of labs, x-rays, and other ancillary data, coordination of (respiratory, nursing care, review of patient's records, discussion regarding patients management with involved consultants, primary physician, pharmacists, and other healthcare personnel (dietary, case management , physical/occupational therapy etc.) Critical Care Time: 30
[2019-02-16] MEDS: oxyCODONE TAB* 5 MG TAB PO PRN ×3 (04:10→16:32)
[2019-02-16 07:38] LABS: ABS Basophils 0.1 10^3/ul (0-0.2); ABS Lymphocytes 2.5 10^3/ul (1.0-4.8); ABS Monocytes 0.8 10^3/ul (0-0.8); ABS Neutrophils 6.7 10^3/ul (1.5-7.7); Eosinophil % 0.2 %; Hematocrit 43 % (35-47); Hemoglobin 14.6 g/dL (12.0-16.0); Lymphocyte % 24.7 %; Mean Corpuscular HGB Conc 34 g/dL (31-36); Mean Corpuscular Hemoglobin 32 pg (27-31); Mean Corpuscular Volume 94 fL (80-97); Mean Platelet Volume 10.1 fL (7.4-10.4); Nucleated Red Blood Cells % 0.1; Platelet Count 92 10^3/uL (150-450); Red Cell Distribution Width 15 % (10.5-15)
[2019-02-16 07:47] LABS: BUN/Creatinine Ratio 22.4 (8-20); Calcium 8.6 mg/dL (8.6-10.3); EGFR Non-African American 90.1 (>60); Magnesium 2.1 mg/dL (1.9-2.7)
[2019-02-16 07:53] LABS: Potassium 4.4 mmol/L (3.5-5.0)
[2019-02-16] MEDS: Atorvastatin* 80 MG TAB PO SCH (08:49)
[2019-02-16] MEDS: Nicotine PATCH 14 MG/24 HR* PATCH TRANSDERM SCH (08:49)
[2019-02-16] MEDS: Aspirin 81 mg CHEW TAB* 81 MG TAB.CHEW PO SCH (08:49)
[2019-02-16] MEDS: Lisinopril TAB* 5 MG PO SCH (08:49)
[2019-02-16] MEDS: Metoprolol Succinate XL TAB* 25 MG PO SCH ×2 (09:41→09:44)
[2019-02-16 13:53] VITALS: BP 132/64
[2019-02-16 18:19] LABS: Troponin I 0.02 ng/mL (<0.04)
[2019-02-16] MEDS ORDERED: Apixaban* 5 MG TAB PO ONE (18:45)
--- NOTE | 2019-02-16 23:51 | DS ---
CC: JOSE Chaidez; Dr. Sanket Rapp * DISCHARGE SUMMARY: DATE OF ADMISSION: 02/14/19 DATE OF DISCHARGE: 02/16/19 PRIMARY CARE PROVIDER: JOSE Chaidez. GRINDER SET UP OPERATOR THREAD TOOL: Sanket Rapp MD. ATTENDING PHYSICIAN: Jodie Logan MD * (dictated by JOSE Austin). PRIMARY DIAGNOSIS: New onset atrial fibrillation. SECONDARY DIAGNOSES: 1. Coronary artery disease, status post non-ST elevation myocardial infarction , without PCI. 2. Chronic obstructive pulmonary disease, intermittent need for 2 L O2. 3. Hypertension. 4. Thrombocytopenia. 5. Hyperlipidemia. 6. Chronic pain. 7. Intermittent left bundle branch block. 8. History of seizure disorder, most recent seizure in 1975. STUDIES WHILE IN THE HOSPITAL: Chest x-ray, 02/14/19, impression: Low lung volumes, small right basilar infiltrate suggestive of atelectasis, less likely pneumonia. DISCHARGE MEDICATIONS: Home medications: 1. Metoprolol succinate XL 25 mg p.o. daily. 2. Benzonatate 100 mg p.o. t.i.d. p.r.n. cough. 3. Aspirin 81 mg p.o. daily. 4. Sennosides 1 tab p.o. daily p.r.n. constipation. 5. Albuterol HFA inhaler, 1 to 2 puffs inhalation q.4 hours, p.r.n. shortness of breath/wheeze. 6. Oxycodone 10 mg p.o. q.6 hours p.r.n. pain. 7. Nitroglycerin 0.4 mg sublingual q.5 minutes p.r.n., maximum daily dose 3 tabs p.r.n. angina. 8. Atorvastatin 80 mg p.o. daily. New home medications: Apixaban 5 mg p.o. b.i.d., start tonight. HISTORY OF PRESENT ILLNESS/HOSPITAL COURSE: Ms. Greer is a 58-year-old female with a past medical history of coronary artery disease, status post MA, without stent, COPD with intermittent oxygen use, hypertension, hyperlipidemia, who presented to the emergency department after missing a dose of metoprolol as she forgot to pack them, x1 dose. The patient went to a doctor's appointment and had a cortisone injection into the back. She went about her day and then developed shortness of breath and chest pain. She felt as if she was going to pass out. She then arrived at the ER. She was found to be tachycardic with rates above 200. She was given diltiazem push and started on drip. Her rate came down into the 100s. Blood pressure was maintained throughout this episode. Her lab work did reveal low carbon dioxide and elevated lactate. She had no evidence of systemic illness. She was admitted to the hospital due to severe tachycardia, cardiogenic shock. She was admitted to the intensive care unit. Dr. Valencia evaluated the patient for admission as well in consultation. She was planned for a ELIGIO-guided cardioversion in the morning, but was noted to spontaneously convert to normal sinus rhythm overnight. She then remained in normal sinus rhythm throughout her stay as evidenced by telemetry monitoring 24 hours. She spent 1 night in the ICU and was found to be stable. She was then transferred to the floor. The patient remained in good health throughout her stay. It is noted that she was on a Cardizem drip for a short amount of time during her stay, but this again was discontinued. The patient had platelets that were within normal limits, but then dropped, which was likely partially dilutional. On the day of discharge, the patient's platelets were noted to be trending upward. It is also noted that the patient has chronic thrombocytopenia and she is much closer to her baseline platelet count at the time of discharge. The patient will have an order for recheck of platelets with followup with her primary care provider with the results, in approximately 5 days. It was also noted that the patient had a mildly elevated troponin at 0.05. It has now returned to baseline, within normal limits. This was likely caused by a demand ischemia that was experienced during atrial fibrillation with rapid ventricular response. The patient is noted to use nicotine. While in the hospital, she was offered nicotine patches. She was also counseled on smoking cessation. She was offered nicotine patch prescription on discharge, but declined, stating that she has patches at home. At the time of discharge, Ms. Greer is eager to go home. She denies chest pain, shortness of breath, palpitation, abdominal pain, nausea, vomiting, diarrhea. She does note that she has not had a bowel movement recently, she believes that this is due to a lack of coffee. She was counseled on continuing to abstain from coffee and other caffeine products. She denies pain in the calves. On the day of discharge , we discussed anticoagulation as the patient has a CHADs- VASc score of 3 with 3.2% risk of stroke and a HAS-BLED score of 1. She has opted to start Eliquis at discharge. She will be given 1 dose at discharge and a prescription has been sent to her pharmacy. DISCHARGE PLAN: Ms. Greer will be discharged to home. ACTIVITY: As tolerated. DIET: Heart healthy, no caffeine. EDUCATION: 1. Follow up with primary care provider in 4 to 7 days. 2. Follow up with Cardiology, Dr. Rapp, in 4 to 7 days. 3. Repeat labs for platelets in approximately 5 days, requisition given. 4. Discontinue lisinopril. 5. Start Eliquis tonight and take q.12 hours. 6. Return to the ER or nearest hospital if you experience any return of symptoms, palpitations, chest pain or discomfort, shortness of breath, dizziness , lightheadedness, loss of consciousness, high fevers, chills, night sweats, or any other worrisome signs or symptoms. This is a summarized report of a complex medical history and hospital stay. For further details, please see the entire medical record. TIME SPENT: Approximately 35 minutes were spent on this discharge; greater than half of that time was spent [id number] with the patient discussing discharge plans and instructions. JOSE PANTOJA [id number]/[facility] #: [id number]
== END 2019-02-16 19:18 | disposition home or self-care (01) | DRG 308 ==
LOC: ED 17:58 → ICU 19:53 → OBSVTOIN 21:00 → MEDTELE 02-15 15:38
PROVIDERS: ADMIT Internal Medicine; ATTEND Internal Medicine
DX: I48.91 Unspecified atrial fibrillation (principal); R57.0 Cardiogenic shock; K72.00 Acute and subacute hepatic failure without coma; E87.2 Acidosis; I24.8 Other forms of acute ischemic heart disease; I25.10 Atherosclerotic heart disease of native coronary artery without angina pectoris; I10 Essential (primary) hypertension; F17.210 Nicotine dependence, cigarettes, uncomplicated; J44.9 Chronic obstructive pulmonary disease, unspecified; E78.5 Hyperlipidemia, unspecified; I44.7 Left bundle-branch block, unspecified; G40.909 Epilepsy, unspecified, not intractable, without status epilepticus; D69.6 Thrombocytopenia, unspecified; R73.9 Hyperglycemia, unspecified; G89.4 Chronic pain syndrome; I48.92 Unspecified atrial flutter; E83.51 Hypocalcemia; I25.2 Old myocardial infarction; Z82.49 Family history of ischemic heart disease and other diseases of the circulatory system; Z72.89 Other problems related to lifestyle; Z99.81 Dependence on supplemental oxygen; Z79.82 Long term (current) use of aspirin; Z79.01 Long term (current) use of anticoagulants
CPT/HCPCS: 36415; 71045; 80048; 80053; 80061; 81003; 81015; 83036; 83605; 83735; 84443; 84484; 85025; 85060; 85379; 85610; 85730; 87086; 87641; 93005; 99285; A9270-GY; G8978-GP-CI; G8979-GP-CI; G8980-GP-CI; J1644; J2250; J3010